=== PATIENT | female | born 1955 | race Caucasian/White ===

== ENCOUNTER 2017-12-29 10:31 | Emergency (ER) | payer SELFPAY ==
[~2017-12-29] VITALS: Ht 154.9 cm; Wt 45.4 kg
[~2017-12-29 10:31] MED LIST: ASPI325; ASPI325 PO; CYCL10 PO; HYDACE5 PO; HYDR1TAB94 PO; IBUP600 PO; NAPR375 PO; Naprosyn500 MG PO; Norco 5-325 Ta1 EACH PO; OXYACE5T PO; PROM25 PO
[2017-12-29] MEDS ORDERED: GUAI600T33 (11:39)
[2017-12-29 12:11] LABS: BASOPHILS ABSOLUTE AUTO 0.04 K/mm3 (0.00-0.23); BASOPHILS PERCENT AUTO 0 % (0-2); EOSINOPHILS PERCENT AUTO 0 % (0-6); Hematocrit 48.3 % (33.0-51.0); Hemoglobin 15.9 g/dL (11.5-16.0); IMMATURE GRAN ABSOLUTE AUTO 0.05 K/mm3 (0.00-0.10); IMMATURE GRAN PERCENT AUTO 0 % (0-1); LYMPHOCYTES ABSOLUTE AUTO 1.14 K/mm3 (0.84-5.20); LYMPHOCYTES PERCENT AUTO 10 % (21-46); MONOCYTES ABSOLUTE AUTO 0.92 K/mm3 (0.16-1.47); MONOCYTES PERCENT AUTO 8 % (4-13); Mean Corpuscular HGB 29.8 pg (26.0-34.0); Mean Corpuscular HGB Conc 32.9 g/dL (31.5-36.5); Mean Corpuscular Volume 90 fL (80-100); Mean Platelet Volume 11.7 fL (9.1-12.4); NEUTROPHILS ABSOLUTE AUTO 9.18 K/mm3 (1.96-9.15); NEUTROPHILS PERCENT AUTO 81 % (41-73); Platelet Count 212 K/mm3 (150-400); RDW Coefficient Variation 13.6 % (11.7-14.2); RDW Standard Deviation 45.1 fL (35.1-46.3); Red Blood Cell Count 5.34 M/mm3 (3.80-5.20); White Blood Cell Count 11.33 K/mm3 (4.00-11.30)
[2017-12-29 12:30] LABS: Anion Gap 8 mmol/L (6-16); Blood Urea Nitrogen 16 mg/dL (8-24); Bun/Creatinine Ratio 31.4 (12.0-20.0); CO2, Blood 26 mmol/L (21-32); Chloride, Blood 104 mmol/L (98-108); Creatinine, Blood 0.51 mg/dL (0.40-1.00); Glomerular Filtration Rate >60 (60-); Glucose, Blood 91 mg/dL (70-99); Potassium, Blood 3.9 mmol/L (3.5-5.5); Sodium, Blood 138 mmol/L (136-145)
[2017-12-29 14:41] LABS: Base Excess Venous -0.8 mmol/L; Bicarbonate Venous 23.5 mmol/L (24.0-30.0); PCO2 Venous 39.6 mmHg (38-42); PO2 Venous 44.7 mmHg (38-42); pH Blood Venous 7.39 (7.34-7.37)
[2017-12-29 15:04] LABS: Troponin I <0.015 ng/mL (0.000-0.040)
[2017-12-29] MEDS ORDERED: HYDR1TAB94 PO (16:17)
[2017-12-29] MEDS ORDERED: Ativan1 MG SL (16:17)
[2017-12-29] MEDS ORDERED: SPACE CHAMBER1 EACH XX (16:20)
[2017-12-29] MEDS ORDERED: ALBU90OI INH (16:20)
== END 2017-12-29 16:25 | disposition home or self-care (01) ==
LOC: ER 10:31
PROVIDERS: Emergency Medicine; Physician Assistant
DX: J44.0 Chronic obstructive pulmonary disease with (acute) lower respiratory infection (principal); J20.9 Acute bronchitis, unspecified; F32.9 Major depressive disorder, single episode, unspecified; F17.200 Nicotine dependence, unspecified, uncomplicated
CPT/HCPCS: 36415; 71046; 80048; 82803; 84443; 84484; 85025; 93005; 93010; 94640; 96374; 99284; J2060

== ENCOUNTER 2018-01-04 09:16 | Emergency (ER) | payer SELFPAY ==
[~2018-01-04] VITALS: Ht 154.9 cm; Wt 49.9 kg
[~2018-01-04 09:16] MED LIST changes: +ALBU90OI INH; +Ativan1 MG SL; +GUAI600T33; +SPACE CHAMBER1 EACH XX
[2018-01-04 10:27] LABS: BASOPHILS ABSOLUTE AUTO 0.06 K/mm3 (0.00-0.23); BASOPHILS PERCENT AUTO 1 % (0-2); EOSINOPHILS ABSOLUTE AUTO 0.03 K/mm3 (0.00-0.68); EOSINOPHILS PERCENT AUTO 0 % (0-6); Hematocrit 49.1 % (33.0-51.0); Hemoglobin 16.4 g/dL (11.5-16.0); IMMATURE GRAN ABSOLUTE AUTO 0.13 K/mm3 (0.00-0.10); IMMATURE GRAN PERCENT AUTO 1 % (0-1); LYMPHOCYTES ABSOLUTE AUTO 2.69 K/mm3 (0.84-5.20); LYMPHOCYTES PERCENT AUTO 26 % (21-46); MONOCYTES ABSOLUTE AUTO 0.68 K/mm3 (0.16-1.47); MONOCYTES PERCENT AUTO 7 % (4-13); Mean Corpuscular HGB 29.5 pg (26.0-34.0); Mean Corpuscular HGB Conc 33.4 g/dL (31.5-36.5); Mean Corpuscular Volume 88 fL (80-100); NEUTROPHILS ABSOLUTE AUTO 6.64 K/mm3 (1.96-9.15); NEUTROPHILS PERCENT AUTO 65 % (41-73); Platelet Count 369 K/mm3 (150-400); RDW Coefficient Variation 12.9 % (11.7-14.2); RDW Standard Deviation 41.8 fL (35.1-46.3); Red Blood Cell Count 5.56 M/mm3 (3.80-5.20); White Blood Cell Count 10.23 K/mm3 (4.00-11.30)
[2018-01-04 10:51] LABS: Free Thyroxine 1.41 ng/dL (0.70-1.60); Magnesium, Blood 2.3 mg/dL (1.6-2.4)
[2018-01-04 10:52] LABS: Anion Gap 11 mmol/L (6-16); Blood Urea Nitrogen 15 mg/dL (8-24); Bun/Creatinine Ratio 31.1 (12.0-20.0); CO2, Blood 26 mmol/L (21-32); Calcium, Blood 9.5 mg/dL (8.5-10.1); Chloride, Blood 102 mmol/L (98-108); Creatinine, Blood 0.48 mg/dL (0.40-1.00); Glomerular Filtration Rate >60 (60-); Glucose, Blood 110 mg/dL (70-99); Potassium, Blood 4.2 mmol/L (3.5-5.5); Sodium, Blood 139 mmol/L (136-145)
[2018-01-04 10:55] LABS: Thyroid Stimulating Hormone 0.898 uIU/mL (0.360-4.800)
[2018-01-04] MEDS ORDERED: LEVO750 PO (12:05)
== END 2018-01-04 13:07 | disposition home or self-care (01) ==
LOC: ER 09:16
PROVIDERS: Emergency Medicine
DX: J44.1 Chronic obstructive pulmonary disease with (acute) exacerbation (principal); F43.21 Adjustment disorder with depressed mood; Z79.899 Other long term (current) drug therapy
CPT/HCPCS: 36415; 71046; 80048; 83735; 84439; 84443; 85025; 96360; 99283; J7030

== ENCOUNTER 2018-02-19 18:03 | Inpatient (IN) | payer SELFPAY ==
[~2018-02-19] VITALS: Ht 154.9 cm; Wt 44.8 kg
[~2018-02-19 18:03] MED LIST changes: +LEVO750 PO
[2018-02-19 18:49] LABS: BASOPHILS PERCENT AUTO 1 % (0-2); EOSINOPHILS ABSOLUTE AUTO 0.25 K/mm3 (0.00-0.68); EOSINOPHILS PERCENT AUTO 1 % (0-6); Hematocrit 39.3 % (33.0-51.0); IMMATURE GRAN ABSOLUTE AUTO 0.15 K/mm3 (0.00-0.10); IMMATURE GRAN PERCENT AUTO 1 % (0-1); LYMPHOCYTES ABSOLUTE AUTO 1.72 K/mm3 (0.84-5.20); LYMPHOCYTES PERCENT AUTO 8 % (21-46); MONOCYTES ABSOLUTE AUTO 1.42 K/mm3 (0.16-1.47); MONOCYTES PERCENT AUTO 7 % (4-13); Mean Corpuscular HGB 29.6 pg (26.0-34.0); Mean Corpuscular HGB Conc 33.1 g/dL (31.5-36.5); Mean Corpuscular Volume 90 fL (80-100); Mean Platelet Volume 10.8 fL (9.1-12.4); NEUTROPHILS ABSOLUTE AUTO 17.75 K/mm3 (1.96-9.15); NEUTROPHILS PERCENT AUTO 83 % (41-73); Platelet Count 339 K/mm3 (150-400); RDW Coefficient Variation 14.1 % (11.7-14.2); RDW Standard Deviation 46.3 fL (35.1-46.3); Red Blood Cell Count 4.39 M/mm3 (3.80-5.20); White Blood Cell Count 21.39 K/mm3 (4.00-11.30)
[2018-02-19 19:07] LABS: Troponin I <0.015 ng/mL (0.000-0.040)
[2018-02-19 19:13] LABS: Alanine Aminotransfer (ALT/SGP 111 U/L (12-78); Albumin, Blood 2.9 g/dL (3.4-5.0); Albumin/Globulin Ratio 0.6 (0.8-1.8); Alk Phos 152 U/L (50-136); Anion Gap 7 mmol/L (6-16); Aspartate Aminotrans (AST/SGOT 139 U/L (12-37); Bilirubin, Total 0.3 mg/dL (0.1-1.0); Blood Urea Nitrogen 10 mg/dL (8-24); CO2, Blood 24 mmol/L (21-32); Calcium, Blood 8.8 mg/dL (8.5-10.1); Chloride, Blood 107 mmol/L (98-108); Creatinine, Blood 0.56 mg/dL (0.40-1.00); Globulin, Blood 4.9 g/dL (2.2-4.0); Glomerular Filtration Rate >60 (60-); Glucose, Blood 119 mg/dL (70-99); Potassium, Blood 4.2 mmol/L (3.5-5.5); Sodium, Blood 138 mmol/L (136-145); Total Protein, Blood 7.8 g/dL (6.4-8.2)
[2018-02-19] MEDS ORDERED: ASPI81CH PO (19:34)
[2018-02-20 06:00] LABS: BASOPHILS ABSOLUTE AUTO 0.03 K/mm3 (0.00-0.23); BASOPHILS PERCENT AUTO 0 % (0-2); EOSINOPHILS PERCENT AUTO 0 % (0-6); Hematocrit 36.5 % (33.0-51.0); Hemoglobin 11.9 g/dL (11.5-16.0); IMMATURE GRAN ABSOLUTE AUTO 0.13 K/mm3 (0.00-0.10); IMMATURE GRAN PERCENT AUTO 1 % (0-1); LYMPHOCYTES ABSOLUTE AUTO 0.63 K/mm3 (0.84-5.20); LYMPHOCYTES PERCENT AUTO 5 % (21-46); MONOCYTES ABSOLUTE AUTO 0.08 K/mm3 (0.16-1.47); MONOCYTES PERCENT AUTO 1 % (4-13); Mean Corpuscular HGB 29.8 pg (26.0-34.0); Mean Corpuscular HGB Conc 32.6 g/dL (31.5-36.5); Mean Corpuscular Volume 92 fL (80-100); Mean Platelet Volume 10.8 fL (9.1-12.4); NEUTROPHILS ABSOLUTE AUTO 12.35 K/mm3 (1.96-9.15); NEUTROPHILS PERCENT AUTO 93 % (41-73); Platelet Count 337 K/mm3 (150-400); RDW Coefficient Variation 14.4 % (11.7-14.2); RDW Standard Deviation 48.7 fL (35.1-46.3); Red Blood Cell Count 3.99 M/mm3 (3.80-5.20); White Blood Cell Count 13.22 K/mm3 (4.00-11.30)
[2018-02-20 06:23] LABS: Alanine Aminotransfer (ALT/SGP 86 U/L (12-78); Albumin, Blood 2.6 g/dL (3.4-5.0); Albumin/Globulin Ratio 0.5 (0.8-1.8); Alk Phos 133 U/L (50-136); Anion Gap 10 mmol/L (6-16); Aspartate Aminotrans (AST/SGOT 50 U/L (12-37); Bilirubin, Total 0.3 mg/dL (0.1-1.0); Blood Urea Nitrogen 9 mg/dL (8-24); Bun/Creatinine Ratio 19.1 (12.0-20.0); CO2, Blood 24 mmol/L (21-32); Calcium, Blood 8.4 mg/dL (8.5-10.1); Chloride, Blood 109 mmol/L (98-108); Creatinine, Blood 0.47 mg/dL (0.40-1.00); Globulin, Blood 4.8 g/dL (2.2-4.0); Glomerular Filtration Rate >60 (60-); Glucose, Blood 149 mg/dL (70-99); Potassium, Blood 3.9 mmol/L (3.5-5.5); Sodium, Blood 143 mmol/L (136-145); Total Protein, Blood 7.4 g/dL (6.4-8.2)
[2018-02-21 17:29] LABS: Influenza A Negative (NEGATIVE); Influenza B Negative (NEGATIVE)
[2018-02-22 16:32] LABS: Hematocrit 39.7 % (33.0-51.0); Hemoglobin 13.1 g/dL (11.5-16.0)
[2018-02-22 21:55] LABS: Hematocrit 38.4 % (33.0-51.0); Hemoglobin 12.4 g/dL (11.5-16.0)
[2018-02-23 04:46] LABS: Hematocrit 42.8 % (33.0-51.0); Hemoglobin 13.8 g/dL (11.5-16.0)
[2018-02-23 10:17] LABS: Hematocrit 42.4 % (33.0-51.0)
== END 2018-02-23 13:40 | disposition home or self-care (01) | DRG 189 ==
LOC: ER 18:03 → SURS 22:01
PROVIDERS: Emergency Medicine; Internal Medicine
DX: J96.01 Acute respiratory failure with hypoxia (principal); J44.1 Chronic obstructive pulmonary disease with (acute) exacerbation; K21.9 Gastro-esophageal reflux disease without esophagitis; J40 Bronchitis, not specified as acute or chronic; S30.1XXA Contusion of abdominal wall, initial encounter; I73.9 Peripheral vascular disease, unspecified; Z79.82 Long term (current) use of aspirin; Z79.899 Other long term (current) drug therapy; Z87.891 Personal history of nicotine dependence
CPT/HCPCS: 36415; 71046; 74177; 80053; 83605; 83690; 83880; 84484; 85014; 85018; 85025; 87070; 87077; 87186; 87205; 87804; 93005; 93010; 94010; 94640; 94644; 94664; 94667; 94668; 94760; 96365; 96366; 96375; 98960; 99285; 99407; J1650; J1956; J2920; J2930; J3010; J7030; Q9967

== ENCOUNTER 2018-12-30 12:23 | Emergency (ER) | payer OTHER ==
[~2018-12-30] VITALS: Ht 154.9 cm; Wt 41.7 kg
[~2018-12-30 12:23] MED LIST changes: +ASPI81CH PO
[2018-12-30] MEDS ORDERED: Ventolin/Prove6.7 GM (13:27)
[2018-12-30] MEDS ORDERED: CLON.5 PO (13:27)
[2018-12-30] MEDS ORDERED: BUSP10 PO (13:27)
[2018-12-30] MEDS ORDERED: IBUP600 PO (13:46)
[2018-12-30] MEDS ORDERED: Percocet 5-3251 EACH PO (13:46)
== END 2018-12-30 13:57 | disposition home or self-care (01) ==
LOC: ER 12:23
DX: M75.32 Calcific tendinitis of left shoulder (principal); Z79.899 Other long term (current) drug therapy; J44.9 Chronic obstructive pulmonary disease, unspecified; F17.200 Nicotine dependence, unspecified, uncomplicated
CPT/HCPCS: 73030; 99283-25

== ENCOUNTER 2019-11-17 11:32 | Emergency (ER) | payer OTHER ==
[~2019-11-17] VITALS: Ht 154.9 cm; Wt 38.6 kg
[~2019-11-17 11:32] MED LIST changes: +BUSP10 PO; +CLON.5 PO; +Percocet 5-3251 EACH PO; +Ventolin/Prove6.7 GM
[2019-11-17 12:27] LABS: BASOPHILS ABSOLUTE AUTO 0.04 K/mm3 (0.00-0.23); BASOPHILS PERCENT AUTO 0 % (0-2); EOSINOPHILS ABSOLUTE AUTO 0.05 K/mm3 (0.00-0.68); EOSINOPHILS PERCENT AUTO 0 % (0-6); Hematocrit 46.4 % (33.0-51.0); Hemoglobin 15.5 g/dL (11.5-16.0); IMMATURE GRAN ABSOLUTE AUTO 0.09 K/mm3 (0.00-0.10); IMMATURE GRAN PERCENT AUTO 1 % (0-1); LYMPHOCYTES ABSOLUTE AUTO 2.26 K/mm3 (0.84-5.20); LYMPHOCYTES PERCENT AUTO 14 % (21-46); MONOCYTES PERCENT AUTO 9 % (4-13); Mean Corpuscular HGB 30.8 pg (26.0-34.0); Mean Corpuscular HGB Conc 33.4 g/dL (31.5-36.5); Mean Corpuscular Volume 92 fL (80-100); Mean Platelet Volume 11.5 fL (9.1-12.4); NEUTROPHILS ABSOLUTE AUTO 12.52 K/mm3 (1.96-9.15); NEUTROPHILS PERCENT AUTO 76 % (41-73); Platelet Count 236 K/mm3 (150-400); RDW Coefficient Variation 13.2 % (11.7-14.2); RDW Standard Deviation 44.8 fL (35.1-46.3); Red Blood Cell Count 5.03 M/mm3 (3.80-5.20); White Blood Cell Count 16.46 K/mm3 (4.00-11.30)
[2019-11-17 12:43] LABS: Anion Gap 6 mmol/L (6-16); Blood Urea Nitrogen 21 mg/dL (8-24); Bun/Creatinine Ratio 35.5 (12.0-20.0); CO2, Blood 25 mmol/L (21-32); Calcium, Blood 9.2 mg/dL (8.5-10.1); Chloride, Blood 109 mmol/L (98-108); Creatinine, Blood 0.59 mg/dL (0.40-1.00); Glomerular Filtration Rate >60 (60-); Glucose, Blood 115 mg/dL (70-99); Potassium, Blood 4.1 mmol/L (3.5-5.5); Sodium, Blood 140 mmol/L (136-145)
[2019-11-17 12:49] LABS: Influenza A Negative (NEGATIVE); Influenza B Negative (NEGATIVE)
[2019-11-17 14:44] LABS: Source, Urine Clean Catch
[2019-11-17 14:57] LABS: Blood, Urine 1+ (Neg); Glucose Qualitative, Urine Neg (Neg); Ketones, Urine 2+ (Neg); Leukocyte Esterase, Urine 1+ (Neg); Nitrite, Urine Neg (Neg); Protein, Urine 2+ (Neg); Urobilinogen, Urine NORM (Normal)
[2019-11-17 15:10] LABS: Bilirubin, Urine 1+ (Neg); Color, Urine Yellow (P-Yellow)
[2019-11-17 15:11] LABS: Appearance, Urine Hazy (Clear)
[2019-11-17 15:14] LABS: Squamous Epithelial Cells Mod /hpf (Few)
[2019-11-17 15:15] LABS: Bacteria Many /hpf; Mucus Light (0-Heavy)
[2019-11-17] MEDS ORDERED: Keflex500 MG PO (15:27)
[2019-11-17] MEDS ORDERED: Norco 5-325 Ta1 EACH PO (15:27)
[2019-11-17] MEDS ORDERED: ONDA4ODT MM (15:27)
[2019-12-11] MEDS ORDERED: BUSP10 PO (12:50)
[2019-12-11] MEDS ORDERED: SERT25 PO (12:51)
[2019-12-11] MEDS ORDERED: ALBU90OI INH (12:51)
[2019-12-11] MEDS ORDERED: ASPI325 PO (12:52)
== END 2019-11-17 16:30 | disposition home or self-care (01) ==
LOC: ER 11:32
PROVIDERS: Physician Assistant
DX: J11.1 Influenza due to unidentified influenza virus with other respiratory manifestations (principal); N39.0 Urinary tract infection, site not specified; J44.9 Chronic obstructive pulmonary disease, unspecified; F17.210 Nicotine dependence, cigarettes, uncomplicated; Z79.899 Other long term (current) drug therapy; Z79.51 Long term (current) use of inhaled steroids
CPT/HCPCS: 71046; 80048; 81001; 85025; 87086; 87804; 96361; 96365; 96375; 99283-25; J0696; J2405; J7030

== ENCOUNTER 2019-12-12 10:06 | Day surgery (SDC) | payer OTHER ==
[~2019-12-12] VITALS: Ht 154.9 cm; Wt 37.9 kg
[~2019-12-12 10:06] MED LIST changes: +Keflex500 MG PO; +ONDA4ODT MM; +SERT25 PO
--- NOTE | 2019-12-12 11:25 | NUR ---
History, Chart, Medications and Allergies reviewed before start of procedure. Patient confirms NPO status and agrees with scheduled surgery. Lungs clear T/O to Auscultation. Patient States Post-Procedure ride home has been arranged. Patient states colon prep results clear. Pre-Op teaching done. Pt verbalizes understanding.
--- NOTE | 2019-12-12 11:53 | NUR ---
PATIENT INTERESTED IN ADVANCED DIRECTIVE BOOKLET, EDUCATION PROVIDED AND BOOKLET GIVEN TO PATIENT TO REVIEW.
--- NOTE | 2019-12-12 12:29 | NUR ---
12/12/19 1229 CAROLE SCHULTZ History, Chart, Medications and Allergies reviewed before start of procedure.3-LEAD EKG REVIEWED WITH PHYSICIAN PRIOR TO START OF PROCEDURE.O2 VIA N/C INTACT THROUGHOUT SEDATION/PROCEDURE. MONITOR INTACT WITH CONTINUOUS PULSE OXIMETRY AND INTERMITTENT BP.PATIENT DETERMINED TO BE ASA APPROPRIATE FOR PROPOFOL SEDATION PRIOR TO START OF PROCEDURE BY .
== END 2019-12-12 13:26 | disposition home or self-care (01) ==
LOC: ORSCMMR 10:06 → ORD 11:00 → ORSCMMR 13:26
PROVIDERS: Internal Medicine Gastroenterology
PROC: 0DBN8ZX Excision of Sigmoid Colon, Via Natural or Artificial Opening Endoscopic, Diagnostic (ICD-10-PCS; principal; 2019-12-12 11:00)
DX: Z12.11 Encounter for screening for malignant neoplasm of colon (principal); K63.5 Polyp of colon; J44.9 Chronic obstructive pulmonary disease, unspecified; I73.9 Peripheral vascular disease, unspecified; F41.9 Anxiety disorder, unspecified; F17.210 Nicotine dependence, cigarettes, uncomplicated; Z79.82 Long term (current) use of aspirin; Z79.899 Other long term (current) drug therapy
CPT/HCPCS: 88305; J2704; J7120

== ENCOUNTER → 2020-01-08 | Outpatient (CLI) | payer OTHER ==
[2020-01-09 15:10] LABS: HPV 16 Negative (Negative); HPV 18 Negative (Negative); HPV OTHER HR TYPES Negative (Negative)
== END ==
LOC: LAB SHORT 12:08 → LAB 12:08
PROVIDERS: Registered Nurse Community Health
DX: Z12.4 Encounter for screening for malignant neoplasm of cervix (principal)
CPT/HCPCS: 87624; G0123

== ENCOUNTER 2020-02-20 12:29 | Emergency (ER) | payer OTHER ==
[~2020-02-20] VITALS: Ht 154.9 cm; Wt 39.5 kg
[2020-02-20 12:58] LABS: BASOPHILS ABSOLUTE AUTO 0.08 K/mm3 (0.00-0.23); BASOPHILS PERCENT AUTO 1 % (0-2); EOSINOPHILS ABSOLUTE AUTO 0.01 K/mm3 (0.00-0.68); EOSINOPHILS PERCENT AUTO 0 % (0-6); Hematocrit 49.9 % (33.0-51.0); Hemoglobin 16.5 g/dL (11.5-16.0); IMMATURE GRAN PERCENT AUTO 1 % (0-1); LYMPHOCYTES PERCENT AUTO 6 % (21-46); MONOCYTES ABSOLUTE AUTO 0.76 K/mm3 (0.16-1.47); MONOCYTES PERCENT AUTO 5 % (4-13); Mean Corpuscular HGB 30.5 pg (26.0-34.0); Mean Corpuscular HGB Conc 33.1 g/dL (31.5-36.5); Mean Corpuscular Volume 92 fL (80-100); Mean Platelet Volume 10.6 fL (9.1-12.4); NEUTROPHILS ABSOLUTE AUTO 13.71 K/mm3 (1.96-9.15); NEUTROPHILS PERCENT AUTO 88 % (41-73); Platelet Count 308 K/mm3 (150-400); RDW Coefficient Variation 13.6 % (11.7-14.2); RDW Standard Deviation 46.3 fL (35.1-46.3); Red Blood Cell Count 5.41 M/mm3 (3.80-5.20); White Blood Cell Count 15.66 K/mm3 (4.00-11.30)
[2020-02-20 13:18] LABS: Alanine Aminotransfer (ALT/SGP 20 U/L (12-78); Albumin, Blood 3.8 g/dL (3.4-5.0); Albumin/Globulin Ratio 0.9 (0.8-1.8); Alk Phos 86 U/L (50-136); Anion Gap 6 mmol/L (6-16); Aspartate Aminotrans (AST/SGOT 24 U/L (12-37); Bilirubin, Total 0.2 mg/dL (0.1-1.0); Blood Urea Nitrogen 14 mg/dL (8-24); Bun/Creatinine Ratio 20.6 (12.0-20.0); CO2, Blood 26 mmol/L (21-32); Calcium, Blood 9.4 mg/dL (8.5-10.1); Chloride, Blood 107 mmol/L (98-108); Creatinine, Blood 0.68 mg/dL (0.40-1.00); Globulin, Blood 4.2 g/dL (2.2-4.0); Glomerular Filtration Rate >60 (60-); Glucose, Blood 124 mg/dL (70-99); Potassium, Blood 4.4 mmol/L (3.5-5.5); Sodium, Blood 139 mmol/L (136-145); Troponin I 0.029 ng/mL (0.000-0.040)
[2020-02-20 13:27] LABS: Source, Urine Clean Catch
[2020-02-20 13:35] LABS: Magnesium, Blood 2.3 mg/dL (1.6-2.4); Phosphorus, Blood 2.4 mg/dL (2.5-4.9)
[2020-02-20 13:46] LABS: Bilirubin, Urine Neg (Neg); Blood, Urine 2+ (Neg); Glucose Qualitative, Urine Neg (Neg); Ketones, Urine 2+ (Neg); Leukocyte Esterase, Urine Neg (Neg); Nitrite, Urine Neg (Neg); Protein, Urine 3+ (Neg); Urobilinogen, Urine NORM (Normal)
[2020-02-20 14:07] LABS: Appearance, Urine Hazy (Clear); Color, Urine Yellow (P-Yellow)
[2020-02-20 14:08] LABS: Bacteria Few /hpf; Mucus Light (0-Heavy); Squamous Epithelial Cells Rare /hpf (Few)
[2020-02-20 14:28] LABS: U Amphetamine Screen Not Detected; U Barbituate Screen Not Detected; U Benzodiazapine Screen Not Detected; U Buprenorphine Screen Not Detected; U Cannabinoids Screen DETECTED; U Cocaine Screen Not Detected; U Methadone Screen Not Detected; U Methamphetamine Screen Not Detected; U Opiates Screen Not Detected; U Oxycodone Screen Not Detected; U Phencyclidine Screen Not Detected; U Propoxyphene Screen Not Detected
[2020-02-20] MEDS ORDERED: Esgic Tablet1 EACH PO (15:29)
== END 2020-02-20 16:49 | disposition home or self-care (01) ==
LOC: ER 12:29
PROVIDERS: Emergency Medicine
DX: J44.1 Chronic obstructive pulmonary disease with (acute) exacerbation (principal); G44.209 Tension-type headache, unspecified, not intractable; F32.9 Major depressive disorder, single episode, unspecified; F41.9 Anxiety disorder, unspecified; I73.9 Peripheral vascular disease, unspecified; Z79.82 Long term (current) use of aspirin; Z79.899 Other long term (current) drug therapy; F17.210 Nicotine dependence, cigarettes, uncomplicated
CPT/HCPCS: 36415; 70450; 71045; 80053; 81001; 83690; 83735; 84100; 84484; 85025; 93005; 93010; 96361; 96374; 96375; 99285-25; J1885; J2405; J3010; J7030

== ENCOUNTER 2020-12-01 09:38 | Inpatient (IN) | payer OTHER ==
[~2020-12-01] VITALS: Ht 152.4 cm; Wt 38.4 kg
[~2020-12-01 09:38] MED LIST changes: +Aspirin EC81 MG PO; +Esgic Tablet1 EACH PO
[2020-12-01 10:10] LABS: Calcium, Ionized (POC) 1.22 mmol/L (1.10-1.46); Chloride (POC) 105 mmol/L (98-108); Creatinine (POC) 0.7 mg/dL (0.6-1.0); Glucose (ISTAT POC) 180 mg/dL (70-99); Hemoglobin (POC) 17.7 g/dL (12.0-16.0); Potassium (POC) 3.6 mmol/L (3.5-5.5); Sodium (POC) 142 mmol/L (135-148); Total CO2 (POC) 21 mmol/L (21-32)
[2020-12-01 10:17] LABS: BASOPHILS ABSOLUTE AUTO 0.08 K/mm3 (0.00-0.23); BASOPHILS PERCENT AUTO 0 % (0-2); EOSINOPHILS ABSOLUTE AUTO 0.01 K/mm3 (0.00-0.68); EOSINOPHILS PERCENT AUTO 0 % (0-6); Hematocrit 54.4 % (33.0-51.0); Hemoglobin 16.7 g/dL (11.5-16.0); IMMATURE GRAN ABSOLUTE AUTO 0.11 K/mm3 (0.00-0.10); IMMATURE GRAN PERCENT AUTO 1 % (0-1); LYMPHOCYTES ABSOLUTE AUTO 2.26 K/mm3 (0.84-5.20); LYMPHOCYTES PERCENT AUTO 11 % (21-46); MONOCYTES ABSOLUTE AUTO 1.29 K/mm3 (0.16-1.47); MONOCYTES PERCENT AUTO 6 % (4-13); Mean Corpuscular HGB Conc 30.7 g/dL (31.5-36.5); Mean Corpuscular Volume 98 fL (80-100); Mean Platelet Volume 11.4 fL (9.1-12.4); NEUTROPHILS ABSOLUTE AUTO 16.91 K/mm3 (1.96-9.15); NEUTROPHILS PERCENT AUTO 82 % (41-73); Platelet Count 293 K/mm3 (150-400); RDW Coefficient Variation 13.2 % (11.7-14.2); Red Blood Cell Count 5.56 M/mm3 (3.80-5.20); White Blood Cell Count 20.66 K/mm3 (4.00-11.30)
[2020-12-01] MEDS ORDERED: ATOR20 PO (10:28)
[2020-12-01 10:47] LABS: Alanine Aminotransfer (ALT/SGP 37 U/L (12-78); Albumin, Blood 3.8 g/dL (3.4-5.0); Alk Phos 89 U/L (50-136); Anion Gap 13 mmol/L (6-16); Aspartate Aminotrans (AST/SGOT 30 U/L (12-37); Bilirubin, Total 0.3 mg/dL (0.1-1.0); Blood Urea Nitrogen 24 mg/dL (8-24); Bun/Creatinine Ratio 35.2 (12.0-20.0); CO2, Blood 23 mmol/L (21-32); Calcium, Blood 9.3 mg/dL (8.5-10.1); Chloride, Blood 109 mmol/L (98-108); Creatinine, Blood 0.68 mg/dL (0.40-1.00); Glomerular Filtration Rate >60 (60-); Glucose, Blood 131 mg/dL (70-99); Sodium, Blood 145 mmol/L (136-145); Total Protein, Blood 7.8 g/dL (6.4-8.2); Troponin I 0.128 ng/mL (0.000-0.040)
[2020-12-01 11:10] LABS: Source, Urine Clean Catch
[2020-12-01 11:13] LABS: Appearance, Urine Cloudy (Clear); Bilirubin, Urine Neg (Neg); Blood, Urine 2+ (Neg); Color, Urine Yellow (P-Yellow); Glucose Qualitative, Urine Neg (Neg); Ketones, Urine Neg (Neg); Leukocyte Esterase, Urine Neg (Neg); Nitrite, Urine Neg (Neg); Protein, Urine 2+ (Neg); Urobilinogen, Urine NORM (Normal)
[2020-12-01 11:24] LABS: Squamous Epithelial Cells Few /hpf (Few); White Blood Cells, Urine 0-2 /hpf (0-5)
[2020-12-01 11:25] LABS: Amorphous Heavy (0-Heavy); Bacteria Few /hpf; Mucus Light (0-Heavy)
[2020-12-01 11:34] LABS: U Amphetamine Screen Not Detected; U Barbituate Screen Not Detected; U Benzodiazapine Screen Not Detected; U Buprenorphine Screen Not Detected; U Cannabinoids Screen DETECTED; U Cocaine Screen Not Detected; U Methadone Screen Not Detected; U Methamphetamine Screen Not Detected; U Opiates Screen Not Detected; U Oxycodone Screen Not Detected; U Phencyclidine Screen Not Detected; U Propoxyphene Screen Not Detected
[2020-12-01 12:30] LABS: Creatine Kinase MB 6.6 ng/mL (0.0-3.6); Creatine Kinase MB Index 3.4 (0.0-4.0)
--- NOTE | 2020-12-01 14:19 | NUR ---
telephone report received from JUANITA Figueroa in ED. Anticipate pt arrival to PCU 11 after echocardiogram in progress is finished.
--- NOTE | 2020-12-01 14:25 | NUR ---
Echocardiogram completed.
--- NOTE | 2020-12-01 17:44 | NUR ---
The pt was received from the ED on a stretcher and transfered by sliding to her bed in PCU 11 this afternoon. She awakened briefly when spoken to and for care, and also to get up to the bedside commode to attempt to void after the barlow was dc'd. She otherwise has been sleeping unless stimulated.
--- NOTE | 2020-12-01 17:53 | NUR ---
Daughter in law Chika was here with the patient throughout the admission and until visiting hours were over at this time. Concern voiced about the pt's anxiety and that she can become agitated over being in the hospital. Bed alarm is on due to pt's ongoing lethargy, although she does appear to be more alert and talkative than when she got here around 1500.
[2020-12-02 04:37] LABS: BASOPHILS ABSOLUTE AUTO 0.07 K/mm3 (0.00-0.23); BASOPHILS PERCENT AUTO 1 % (0-2); EOSINOPHILS ABSOLUTE AUTO 0.05 K/mm3 (0.00-0.68); EOSINOPHILS PERCENT AUTO 0 % (0-6); Hemoglobin 13.5 g/dL (11.5-16.0); IMMATURE GRAN ABSOLUTE AUTO 0.05 K/mm3 (0.00-0.10); IMMATURE GRAN PERCENT AUTO 0 % (0-1); LYMPHOCYTES ABSOLUTE AUTO 2.49 K/mm3 (0.84-5.20); LYMPHOCYTES PERCENT AUTO 19 % (21-46); MONOCYTES ABSOLUTE AUTO 1.16 K/mm3 (0.16-1.47); MONOCYTES PERCENT AUTO 9 % (4-13); Mean Corpuscular HGB 30.5 pg (26.0-34.0); Mean Corpuscular HGB Conc 32.9 g/dL (31.5-36.5); Mean Platelet Volume 11.5 fL (9.1-12.4); NEUTROPHILS ABSOLUTE AUTO 9.02 K/mm3 (1.96-9.15); NEUTROPHILS PERCENT AUTO 70 % (41-73); Platelet Count 219 K/mm3 (150-400); RDW Coefficient Variation 13.2 % (11.7-14.2); RDW Standard Deviation 45.3 fL (35.1-46.3); Red Blood Cell Count 4.42 M/mm3 (3.80-5.20); White Blood Cell Count 12.84 K/mm3 (4.00-11.30)
[2020-12-02 04:38] LABS: Mean Corpuscular Volume 93 fL (80-100)
--- NOTE | 2020-12-02 04:50 | NUR ---
SUMMARY PATIENT IS ALERT AND ORIENTED, CAN BE CONFUSED AND ANXIOUS UPON WAKING. 1 PERSON MINIMAL ASSIST TO BEDSIDE COMMODE. PATIENT CALLS APPROPRIATELY, BED ALARM ON DUE TO CONFUSION AT TIMES. PATIENT SLEPT MOST THE NIGHT. BILATERAL COMPRESSION WORN. 02 SATS >90% ON RA. VSS, NO ACUTE CHANGES. CALL LIGHT IN REACH. BED IN LOWEST POSITION.
[2020-12-02 05:04] LABS: Alanine Aminotransfer (ALT/SGP 24 U/L (12-78); Alk Phos 66 U/L (50-136); Anion Gap 6 mmol/L (6-16); Aspartate Aminotrans (AST/SGOT 27 U/L (12-37); Bilirubin, Total 0.6 mg/dL (0.1-1.0); Blood Urea Nitrogen 19 mg/dL (8-24); Bun/Creatinine Ratio 32.1 (12.0-20.0); CO2, Blood 26 mmol/L (21-32); Calcium, Blood 8.4 mg/dL (8.5-10.1); Chloride, Blood 110 mmol/L (98-108); Creatinine, Blood 0.59 mg/dL (0.40-1.00); Globulin, Blood 3.1 g/dL (2.2-4.0); Glomerular Filtration Rate >60 (60-); Glucose, Blood 88 mg/dL (70-99); Potassium, Blood 3.3 mmol/L (3.5-5.5); Sodium, Blood 142 mmol/L (136-145); Total Protein, Blood 6.1 g/dL (6.4-8.2)
--- NOTE | 2020-12-02 08:17 | NUR ---
Provider Dr. Chaudhry was here this morning after the EEG had been completed. The pt is easily awakened this morning, but appears sleepy. She has no complaints, and states that she isn't hungry. States doesn't usually eat breakfast, only drinks coffee.
--- NOTE | 2020-12-02 10:51 | NUR ---
ASSUMED CARE FROM NOC RN, MORNING UPDATE PT WAS HAVING AN EEG DONE DURING REPORT. AFTERWARDS PT WAS SLEEPING IN BED. PT REPORTS FEELING VERY TIRED. PT WAS ABLE TO WAKE UP TO TAKE MORNING MEDICATIONS AND WAS SBA TO THE BSC. PT WAS INFORMED BY DR. BENAVIDES THIS MORNING THAT SHE WOULD NOT BE ABLE TO DRIVE FOR THE [facility]UT[facility] PER [place] LAW. PT BECAME TEARFUL WITH THIS INFORMATION. PT WAS STATUS CHANGED TO MED STATUS NO TELE.
--- NOTE | 2020-12-02 12:26 | NUR ---
TRANSFER TO MEDICAL FLOOR PT TRANSFERRED TO MEDICAL FLOOR AT APPROXIMATELY 1224 VIA WHEELCHAIR ACCOMPANIED BY RNGILBERTO. PT VS ARE STABLE, PT WAS ABLE TO SBA TRANSFER TO WHEELCHAIR. PT ON RA, SALINE LOCKED. LOVENOX INJECTION GIVEN PRIOR TO TRANSFER. PT REFUSED LUNCH AND DID NOT WANT IT TO TRANSFER WITH HER. REPORT WAS GIVEN TO KENIA GRANT
--- NOTE | 2020-12-02 18:44 | NUR ---
SHIFT SUMMARY- PT TRANSFERED TO MEDICAL FLOOR FROM PCU EARLIER TODAY. DR LEAL CALLED AND ASKED ABOUT THE EEG RESULTS WHICH ARE NOT IN YET. CALLED LINEN SORTER AND INQUIRED ABOUT THE RESULTS. PER LINEN SORTER DR HUYNH HAS READ IT SO THE WRITTEN READING OF IT SHOULD BE AVAILABLE LATE TONIGHT OR TOMORROW MORNING. DR LEAL ALSO ASKED ABOUT DMV DOCUMENTS TO SUSPEND PT ABILITY TO DRIVE UNTIL HER SEIZURE MEDICATIONS ARE MORE REGULATED. PT IS AWARE SHE IS NOT ALLOWED TO DRIVE. DOCUMENTATION WAS LOCATED AND PLACED IN THE PT HARD CHART TO BE FILLED OUT TOMORROW. CALLED DR LEAL, SE IS AWARE. DISCHARGE PLANS ARE UNCERTAIN AT THIS TIME THE PT HAS BEEN LIVING ALONE.
--- NOTE | 2020-12-02 19:15 | NUR ---
ASSUMED CARE RECEIVED REPORT FROM JUANITA AQUINO. PT SITTING UP IN BED, NO S/S ACUTE DISTRESS NOTED. DENIES PAIN OR NEEDS. RESPS E/U. CALL LIGHT, POSSESSIONS IN REACH, BED IN LOW POSITION WITH ALARMS ON. WCTM.
--- NOTE | 2020-12-03 04:30 | NUR ---
COTTON FACTOR ROUNDING AFTER TOILETING AND GETTING VS. ASKED PATIENT IF SHE WOULD LIKE ANYTHING FRESH TO DRINK. STATED "NO, I DONT REALLY DRINK MUCH, MY KIDS ARE ALWAYS AFTER ME FOR THAT".
[2020-12-03 05:13] LABS: BASOPHILS ABSOLUTE AUTO 0.08 K/mm3 (0.00-0.23); BASOPHILS PERCENT AUTO 1 % (0-2); EOSINOPHILS ABSOLUTE AUTO 0.16 K/mm3 (0.00-0.68); EOSINOPHILS PERCENT AUTO 2 % (0-6); Hematocrit 44.2 % (33.0-51.0); Hemoglobin 14.7 g/dL (11.5-16.0); IMMATURE GRAN ABSOLUTE AUTO 0.03 K/mm3 (0.00-0.10); IMMATURE GRAN PERCENT AUTO 0 % (0-1); LYMPHOCYTES PERCENT AUTO 27 % (21-46); MONOCYTES ABSOLUTE AUTO 0.88 K/mm3 (0.16-1.47); MONOCYTES PERCENT AUTO 10 % (4-13); Mean Corpuscular HGB 30.8 pg (26.0-34.0); Mean Corpuscular HGB Conc 33.3 g/dL (31.5-36.5); Mean Corpuscular Volume 93 fL (80-100); Mean Platelet Volume 11.7 fL (9.1-12.4); NEUTROPHILS PERCENT AUTO 60 % (41-73); Platelet Count 221 K/mm3 (150-400); RDW Coefficient Variation 13.1 % (11.7-14.2); RDW Standard Deviation 44.6 fL (35.1-46.3); Red Blood Cell Count 4.78 M/mm3 (3.80-5.20); White Blood Cell Count 8.65 K/mm3 (4.00-11.30)
--- NOTE | 2020-12-03 05:30 | NUR ---
SHIFT SUMMARY PT ASLEEP, NO S/S ACUTE DISTRESS NOTED, RESPS E/U. HAS BEEN VERY DROWSY T/O NIGHT, REASSURED PT THAT THIS IS NORMAL ACTIVITY POST SEIZURE. NO SEIZURE ACTIVITY NOTED T/O NIGHT. VS REVIEWED, WNL. APPEARED TO TOLERATE IV KEPPRA WELL. SPECIAL EDUCATION CASE MANAGER REPORTED TO THIS RN THAT PT HAS LOW ORAL INTAKE OF FLUIDS. WILL CONTINUE TO ENCOURAGE FLUIDS THAT PT PREFERS. PT DENIES NEEDS AT THIS TIME. CALL LIGHT, POSSESSIONS IN REACH, BED IN LOW POSITION WITH SEIZURE PADS AND ALARMS ON. WILL CONTINUE TO MONITOR AND PROVIDE CARE UNTIL REPORT GIVEN TO DAY RN.
[2020-12-03 06:00] LABS: Anion Gap 6 mmol/L (6-16); Blood Urea Nitrogen 16 mg/dL (8-24); Bun/Creatinine Ratio 30.9 (12.0-20.0); CO2, Blood 26 mmol/L (21-32); Calcium, Blood 8.6 mg/dL (8.5-10.1); Chloride, Blood 110 mmol/L (98-108); Creatinine, Blood 0.52 mg/dL (0.40-1.00); Glomerular Filtration Rate >60 (60-); Glucose, Blood 76 mg/dL (70-99); Potassium, Blood 3.7 mmol/L (3.5-5.5); Sodium, Blood 142 mmol/L (136-145)
[2020-12-03] MEDS ORDERED: LEVE500 PO (14:48)
--- NOTE | 2020-12-03 16:45 | NUR ---
DISCHARGE NOTE- PT WAS GIVEN VERBAL AND WRITTEN DISCHARGE INSTRUCTIONS AND ACKNOWLEDGED UNDERSTANDING OF THEM, PT [id number] PRESENT FOR THE DISCHARGE TEACHING. PT IV DC'D PRIOR TO DISCHARGE. AIR POLLUTION ENGINEER YASMINE SENT REFERAL PAPERWORK, REQUESTED BY DR HUYNH'S OFFICE STAFF, TO DR HUYNH'S OFFICE FOR THE PT TO FOLLOW UP WITH HIM. PT ALERT, ORIENTED AND INDEPENDENT IN THE ROOM. SHE DRESSED HERSELF INDEPENDENTLY AND WAS ESCORTED OUT VIA WC BY THE ENGINEERING PROGRAM MANAGER. NO FURTHER QUESTIONS AT THE TIME OF DISCHARGE.
[2021-04-26] MEDS ORDERED: LEVETIRACETAM PO (21:02)
[2021-04-28] MEDS ORDERED: NICO21TP TOP (08:47)
[2021-04-28] MEDS ORDERED: Prinivil10 MG PO (09:52)
== END 2020-12-03 15:30 | disposition home or self-care (01) | DRG 100 ==
LOC: ER 09:38 → PCU 12:29 → MEDS 12-02 12:25
PROVIDERS: Emergency Medicine; Nurse Practitioner Acute Care; Student in an Organized Health Care Education/Training Program; ADMIT Internal Medicine
DX: G40.409 Other generalized epilepsy and epileptic syndromes, not intractable, without status epilepticus (principal); I21.A1 Myocardial infarction type 2; R64 Cachexia; Z68.1 Body mass index [BMI] 19.9 or less, adult; R65.10 Systemic inflammatory response syndrome (SIRS) of non-infectious origin without acute organ dysfunction; Z79.82 Long term (current) use of aspirin; J44.9 Chronic obstructive pulmonary disease, unspecified; F17.210 Nicotine dependence, cigarettes, uncomplicated; I73.9 Peripheral vascular disease, unspecified; F41.8 Other specified anxiety disorders; E78.5 Hyperlipidemia, unspecified; R77.8 Other specified abnormalities of plasma proteins
CPT/HCPCS: 36415; 36416; 51702; 70450; 71045; 80047; 80048; 80053; 81001; 82550; 82553; 83605; 83735; 84443; 84484; 85014; 85025; 85651; 86140; 87040; 93005; 93010; 93306; 94760; 95819; 96374-59; 97165; 99285-25; A9270; J1650; J1953; J2060; J7120

== ENCOUNTER 2021-04-25 18:10 | Emergency (ER) | payer OTHER ==
[~2021-04-25] VITALS: Ht 154.9 cm; Wt 38.6 kg
[~2021-04-25 18:10] MED LIST changes: +ATOR20 PO; +LEVE500 PO
[2021-04-25 18:50] LABS: BASOPHILS ABSOLUTE AUTO 0.06 K/mm3 (0.00-0.23); BASOPHILS PERCENT AUTO 0 % (0-2); EOSINOPHILS ABSOLUTE AUTO 0.05 K/mm3 (0.00-0.68); EOSINOPHILS PERCENT AUTO 0 % (0-6); Hematocrit 44.6 % (33.0-51.0); IMMATURE GRAN ABSOLUTE AUTO 0.08 K/mm3 (0.00-0.10); IMMATURE GRAN PERCENT AUTO 1 % (0-1); LYMPHOCYTES ABSOLUTE AUTO 0.91 K/mm3 (0.84-5.20); LYMPHOCYTES PERCENT AUTO 6 % (21-46); MONOCYTES ABSOLUTE AUTO 0.72 K/mm3 (0.16-1.47); MONOCYTES PERCENT AUTO 5 % (4-13); Mean Corpuscular HGB 31.1 pg (26.0-34.0); Mean Corpuscular HGB Conc 33.6 g/dL (31.5-36.5); Mean Corpuscular Volume 92 fL (80-100); Mean Platelet Volume 11.5 fL (9.1-12.4); NEUTROPHILS ABSOLUTE AUTO 12.63 K/mm3 (1.96-9.15); NEUTROPHILS PERCENT AUTO 87 % (41-73); Platelet Count 226 K/mm3 (150-400); RDW Coefficient Variation 12.9 % (11.7-14.2); RDW Standard Deviation 43.8 fL (35.1-46.3); Red Blood Cell Count 4.83 M/mm3 (3.80-5.20); White Blood Cell Count 14.45 K/mm3 (4.00-11.30)
[2021-04-25 19:14] LABS: Alanine Aminotransfer (ALT/SGP 39 U/L (12-78); Albumin, Blood 3.4 g/dL (3.4-5.0); Albumin/Globulin Ratio 0.9 (0.8-1.8); Alk Phos 86 U/L (50-136); Anion Gap 6 mmol/L (6-16); Aspartate Aminotrans (AST/SGOT 23 U/L (12-37); Bilirubin, Total 0.6 mg/dL (0.1-1.0); Blood Urea Nitrogen 11 mg/dL (8-24); CO2, Blood 27 mmol/L (21-32); Chloride, Blood 107 mmol/L (98-108); Creatinine, Blood 0.61 mg/dL (0.40-1.00); Globulin, Blood 3.8 g/dL (2.2-4.0); Glomerular Filtration Rate >60 (60-); Glucose, Blood 161 mg/dL (70-99); Sodium, Blood 140 mmol/L (136-145); Total Protein, Blood 7.2 g/dL (6.4-8.2); Troponin I <0.015 ng/mL (0.000-0.040)
[2021-04-26] MEDS ORDERED: LEVETIRACETAM PO ×2 (21:02)
== END 2021-04-25 20:29 | disposition left against medical advice (07) ==
LOC: ER 18:10
PROVIDERS: Physician Assistant
DX: R06.02 Shortness of breath (principal); Z53.21 Procedure and treatment not carried out due to patient leaving prior to being seen by health care provider; R05 Cough; R07.9 Chest pain, unspecified; M54.9 Dorsalgia, unspecified; J44.9 Chronic obstructive pulmonary disease, unspecified; Z79.82 Long term (current) use of aspirin; Z79.899 Other long term (current) drug therapy
CPT/HCPCS: 36415; 71045; 80053; 84484; 85025; 93005; 93010; 99285-25

== ENCOUNTER 2021-04-26 19:09 | Observation (INO) | payer OTHER ==
[~2021-04-26] VITALS: Ht 154.9 cm; Wt 38.8 kg
[2021-04-26 19:46] LABS: BASOPHILS ABSOLUTE AUTO 0.02 K/mm3 (0.00-0.23); BASOPHILS PERCENT AUTO 0 % (0-2); EOSINOPHILS ABSOLUTE AUTO 0.01 K/mm3 (0.00-0.68); EOSINOPHILS PERCENT AUTO 0 % (0-6); Hematocrit 46.6 % (33.0-51.0); Hemoglobin 15.4 g/dL (11.5-16.0); IMMATURE GRAN ABSOLUTE AUTO 0.07 K/mm3 (0.00-0.10); IMMATURE GRAN PERCENT AUTO 1 % (0-1); LYMPHOCYTES ABSOLUTE AUTO 2.01 K/mm3 (0.84-5.20); LYMPHOCYTES PERCENT AUTO 14 % (21-46); MONOCYTES ABSOLUTE AUTO 1.19 K/mm3 (0.16-1.47); MONOCYTES PERCENT AUTO 8 % (4-13); Mean Corpuscular HGB 30.6 pg (26.0-34.0); Mean Corpuscular Volume 93 fL (80-100); Mean Platelet Volume 11.8 fL (9.1-12.4); NEUTROPHILS ABSOLUTE AUTO 10.98 K/mm3 (1.96-9.15); NEUTROPHILS PERCENT AUTO 77 % (41-73); Platelet Count 237 K/mm3 (150-400); RDW Coefficient Variation 13.3 % (11.7-14.2); RDW Standard Deviation 45.3 fL (35.1-46.3); Red Blood Cell Count 5.04 M/mm3 (3.80-5.20); White Blood Cell Count 14.28 K/mm3 (4.00-11.30)
[2021-04-26 20:07] LABS: Alanine Aminotransfer (ALT/SGP 35 U/L (12-78); Albumin, Blood 3.4 g/dL (3.4-5.0); Albumin/Globulin Ratio 0.8 (0.8-1.8); Alk Phos 84 U/L (50-136); Anion Gap 5 mmol/L (6-16); Aspartate Aminotrans (AST/SGOT 18 U/L (12-37); Bilirubin, Total 0.2 mg/dL (0.1-1.0); Blood Urea Nitrogen 19 mg/dL (8-24); CO2, Blood 28 mmol/L (21-32); Calcium, Blood 9.3 mg/dL (8.5-10.1); Chloride, Blood 109 mmol/L (98-108); Creatinine, Blood 0.79 mg/dL (0.40-1.00); Globulin, Blood 4.1 g/dL (2.2-4.0); Glomerular Filtration Rate >60 (60-); Glucose, Blood 145 mg/dL (70-99); Potassium, Blood 3.7 mmol/L (3.5-5.5); Sodium, Blood 142 mmol/L (136-145); Total Protein, Blood 7.5 g/dL (6.4-8.2); Troponin I <0.015 ng/mL (0.000-0.040)
[2021-04-26 20:09] LABS: International Normalized Ratio 0.95; Prothrombin Time Results 10.3 Sec (9.7-11.5)
[2021-04-26] MEDS ORDERED: LEVETIRACETAM PO ×2 (21:02)
--- NOTE | 2021-04-26 22:53 | NUR ---
ADMISSION: PATIENT IS RECIEVED FROM ER VIA STRETCHER. ABLE TO AMBULATE WITH A STEADY GAIT TO THE BED AND BATHROOM. VSS, NO REPORTS OF CHEST PAIN AT THIS TIME. PATIENT IS ORIENTED TO ROOM AND CALL ONEIL.
--- NOTE | 2021-04-27 07:48 | NUR ---
SHIFT SUMMARY: PATIENT IS A&OX4, INDEPENDANT IN THE ROOM. VSS, TELEMETRY IS NSR IN THE 60'S. MAINTAINS 02 SATS 90% OR ABOVE ON RA. NO REPORTS OF CHEST PAIN. PATIENT HAS ONLY HAD SIPS OF WATER THIS SHIFT.
[2021-04-27 09:04] LABS: BASOPHILS ABSOLUTE AUTO 0.06 K/mm3 (0.00-0.23); BASOPHILS PERCENT AUTO 1 % (0-2); EOSINOPHILS ABSOLUTE AUTO 0.11 K/mm3 (0.00-0.68); EOSINOPHILS PERCENT AUTO 1 % (0-6); Hematocrit 44.4 % (33.0-51.0); Hemoglobin 15.1 g/dL (11.5-16.0); IMMATURE GRAN ABSOLUTE AUTO 0.06 K/mm3 (0.00-0.10); IMMATURE GRAN PERCENT AUTO 1 % (0-1); LYMPHOCYTES ABSOLUTE AUTO 2.97 K/mm3 (0.84-5.20); LYMPHOCYTES PERCENT AUTO 30 % (21-46); MONOCYTES ABSOLUTE AUTO 0.88 K/mm3 (0.16-1.47); MONOCYTES PERCENT AUTO 9 % (4-13); Mean Corpuscular HGB 31.8 pg (26.0-34.0); Mean Corpuscular Volume 94 fL (80-100); Mean Platelet Volume 11.6 fL (9.1-12.4); NEUTROPHILS ABSOLUTE AUTO 5.99 K/mm3 (1.96-9.15); NEUTROPHILS PERCENT AUTO 60 % (41-73); Platelet Count 216 K/mm3 (150-400); RDW Coefficient Variation 13.4 % (11.7-14.2); RDW Standard Deviation 45.9 fL (35.1-46.3); Red Blood Cell Count 4.75 M/mm3 (3.80-5.20); White Blood Cell Count 10.07 K/mm3 (4.00-11.30)
[2021-04-27 09:31] LABS: Anion Gap 4 mmol/L (6-16); Blood Urea Nitrogen 17 mg/dL (8-24); Bun/Creatinine Ratio 27.2 (12.0-20.0); CO2, Blood 25 mmol/L (21-32); Calcium, Blood 8.3 mg/dL (8.5-10.1); Chloride, Blood 112 mmol/L (98-108); Creatinine, Blood 0.62 mg/dL (0.40-1.00); Glomerular Filtration Rate >60 (60-); Glucose, Blood 86 mg/dL (70-99); Potassium, Blood 3.7 mmol/L (3.5-5.5); Sodium, Blood 141 mmol/L (136-145); Troponin I <0.015 ng/mL (0.000-0.040)
--- NOTE | 2021-04-27 10:22 | NUR ---
Echocardiogram performed.
--- NOTE | 2021-04-27 16:16 | NUR ---
SHIFT SUMMARY NO ACUTE CHANGES NOTED TO PT THIS SHIFT. A&OX4, ABLE TO MAKE NEEDS KNOWN, PLEASANT AND COOPERATIVE TO CARE. NO C/O PAIN OR ANY DISCOMFORT. NO C/O CP, SOB, OR N&V. PT HAD STRESS TEST ORDERED. PT INDEPENDENT IN ROOM, CALLS APPROPRIATELY FOR ASSISTANCE. BED AT LOWEST POSITION. CALL LIGHT WITHIN REACH.
--- NOTE | 2021-04-28 02:04 | NUR ---
PT quiet & pleasant continues on tele monitor without CO. Tele monitor in place SR.
[2021-04-28 05:30] LABS: BASOPHILS ABSOLUTE AUTO 0.09 K/mm3 (0.00-0.23); BASOPHILS PERCENT AUTO 1 % (0-2); EOSINOPHILS ABSOLUTE AUTO 0.28 K/mm3 (0.00-0.68); EOSINOPHILS PERCENT AUTO 3 % (0-6); Hematocrit 47.8 % (33.0-51.0); Hemoglobin 16.2 g/dL (11.5-16.0); IMMATURE GRAN ABSOLUTE AUTO 0.04 K/mm3 (0.00-0.10); IMMATURE GRAN PERCENT AUTO 0 % (0-1); LYMPHOCYTES ABSOLUTE AUTO 2.49 K/mm3 (0.84-5.20); LYMPHOCYTES PERCENT AUTO 27 % (21-46); MONOCYTES ABSOLUTE AUTO 0.86 K/mm3 (0.16-1.47); MONOCYTES PERCENT AUTO 9 % (4-13); Mean Corpuscular HGB Conc 33.9 g/dL (31.5-36.5); Mean Corpuscular Volume 91 fL (80-100); Mean Platelet Volume 11.4 fL (9.1-12.4); NEUTROPHILS PERCENT AUTO 59 % (41-73); Platelet Count 235 K/mm3 (150-400); RDW Standard Deviation 43.9 fL (35.1-46.3); Red Blood Cell Count 5.23 M/mm3 (3.80-5.20); White Blood Cell Count 9.16 K/mm3 (4.00-11.30)
[2021-04-28 05:40] LABS: Albumin, Blood 3.3 g/dL (3.4-5.0); Anion Gap 4 mmol/L (6-16); Blood Urea Nitrogen 14 mg/dL (8-24); CO2, Blood 27 mmol/L (21-32); Calcium, Blood 8.9 mg/dL (8.5-10.1); Chloride, Blood 108 mmol/L (98-108); Creatinine, Blood 0.67 mg/dL (0.40-1.00); Glomerular Filtration Rate >60 (60-); Glucose, Blood 88 mg/dL (70-99); Phosphorus, Blood 3.4 mg/dL (2.5-4.9); Sodium, Blood 139 mmol/L (136-145)
[2021-04-28] MEDS ORDERED: NICO21TP TOP ×2 (08:47)
[2021-04-28] MEDS ORDERED: Prinivil10 MG PO ×2 (09:52)
--- NOTE | 2021-04-28 15:57 | NUR ---
DISCHARGE NOTE PT LEFT BY WC. PIV RMEOVED, MEDS FAXED TO SAVE ON. PAPERWORK REVIEWED, PCP AND CARDS APPT F/U CALLED FOR HER. WHEELED TO CAR BY KARI
== END 2021-04-28 15:21 | disposition home or self-care (01) ==
LOC: ER 19:09 → MEDS 19:10
PROVIDERS: Emergency Medicine; Family Medicine; Nurse Practitioner Acute Care; ADMIT Internal Medicine
DX: I24.9 Acute ischemic heart disease, unspecified (principal); J44.9 Chronic obstructive pulmonary disease, unspecified; G40.909 Epilepsy, unspecified, not intractable, without status epilepticus; F17.210 Nicotine dependence, cigarettes, uncomplicated; E78.5 Hyperlipidemia, unspecified; I73.9 Peripheral vascular disease, unspecified; F41.9 Anxiety disorder, unspecified
CPT/HCPCS: 36415; 71045; 78452; 80048; 80053; 80069; 83880; 84484; 85025; 85610; 85651; 85730; 86141; 93005; 93010; 93017; 93308; 93321; 94762; 96372; 99285-25; A9270; A9500; G0378; J0706; J1650; J2785

== ENCOUNTER 2022-11-04 10:26 | Inpatient (IN) | payer MEDICARE, OTHER ==
[~2022-11-04] VITALS: Ht 154.9 cm; Wt 40.0 kg
[~2022-11-04 10:26] MED LIST changes: +LEVETIRACETAM PO; +NICO21TP TOP; +Prinivil10 MG PO
[2022-11-04 12:00] LABS: Influenza A, PCR NEGATIVE (NEGATIVE); Influenza B, PCR NEGATIVE (NEGATIVE); Resp Syncytial Virus, PCR NEGATIVE (NEGATIVE); SARS-Cov-2 (COVID-19) PCR, MMC NEGATIVE (NEGATIVE)
[2022-11-04 12:04] LABS: BASOPHILS ABSOLUTE AUTO 0.11 K/mm3 (0.00-0.23); BASOPHILS PERCENT AUTO 1 % (0-2); EOSINOPHILS ABSOLUTE AUTO 0.02 K/mm3 (0.00-0.68); EOSINOPHILS PERCENT AUTO 0 % (0-6); Hematocrit 45.4 % (33.0-51.0); Hemoglobin 15.2 g/dL (11.5-16.0); IMMATURE GRAN ABSOLUTE AUTO 0.16 K/mm3 (0.00-0.10); IMMATURE GRAN PERCENT AUTO 1 % (0-1); LYMPHOCYTES ABSOLUTE AUTO 0.91 K/mm3 (0.84-5.20); LYMPHOCYTES PERCENT AUTO 6 % (21-46); MONOCYTES PERCENT AUTO 9 % (4-13); Mean Corpuscular HGB 30.6 pg (26.0-34.0); Mean Corpuscular HGB Conc 33.5 g/dL (31.5-36.5); Mean Corpuscular Volume 91 fL (80-100); Mean Platelet Volume 11.1 fL (9.1-12.4); NEUTROPHILS ABSOLUTE AUTO 13.51 K/mm3 (1.96-9.15); NEUTROPHILS PERCENT AUTO 83 % (41-73); Platelet Count 290 K/mm3 (150-400); RDW Coefficient Variation 13.3 % (11.7-14.2); RDW Standard Deviation 45.4 fL (35.1-46.3); Red Blood Cell Count 4.97 M/mm3 (3.80-5.20); White Blood Cell Count 16.21 K/mm3 (4.00-11.30)
[2022-11-04 12:29] LABS: Albumin, Blood 2.7 g/dL (3.4-5.0); Albumin/Globulin Ratio 0.5 (0.8-1.8); Bilirubin, Total 0.3 mg/dL (0.1-1.0); Bun/Creatinine Ratio 36.9 (12.0-20.0); Calcium, Blood 9.5 mg/dL (8.5-10.1); Creatinine, Blood 0.52 mg/dL (0.40-1.00); Potassium, Blood 4.1 mmol/L (3.5-5.5); Total Protein, Blood 7.7 g/dL (6.4-8.2)
[2022-11-04 16:06] LABS: Source, Urine Clean Catch
[2022-11-04 16:28] LABS: Appearance, Urine Clear (Clear); Blood, Urine 2+ (Neg); Color, Urine Amber (P-Yellow); Glucose Qualitative, Urine Neg (Neg); Ketones, Urine 1+ (Neg); Leukocyte Esterase, Urine Neg (Neg); Nitrite, Urine Neg (Neg); Protein, Urine 3+ (Neg); Urobilinogen, Urine 1+ (Normal)
[2022-11-04 16:42] LABS: Bilirubin, Urine 1+ (Neg)
[2022-11-04 16:43] LABS: Bacteria Many /hpf; Granular Casts 0-2 /lpf (0); Squamous Epithelial Cells Mod /hpf (Few)
[2022-11-05 04:55] LABS: BASOPHILS ABSOLUTE AUTO 0.04 K/mm3 (0.00-0.23); BASOPHILS PERCENT AUTO 0 % (0-2); EOSINOPHILS ABSOLUTE AUTO 0.08 K/mm3 (0.00-0.68); EOSINOPHILS PERCENT AUTO 1 % (0-6); Hematocrit 39.9 % (33.0-51.0); Hemoglobin 12.9 g/dL (11.5-16.0); IMMATURE GRAN ABSOLUTE AUTO 0.21 K/mm3 (0.00-0.10); IMMATURE GRAN PERCENT AUTO 2 % (0-1); LYMPHOCYTES ABSOLUTE AUTO 0.47 K/mm3 (0.84-5.20); LYMPHOCYTES PERCENT AUTO 4 % (21-46); MONOCYTES ABSOLUTE AUTO 0.15 K/mm3 (0.16-1.47); MONOCYTES PERCENT AUTO 1 % (4-13); Mean Corpuscular HGB 30.7 pg (26.0-34.0); Mean Corpuscular HGB Conc 32.3 g/dL (31.5-36.5); Mean Corpuscular Volume 95 fL (80-100); NEUTROPHILS ABSOLUTE AUTO 10.89 K/mm3 (1.96-9.15); NEUTROPHILS PERCENT AUTO 92 % (41-73); Platelet Count 247 K/mm3 (150-400); RDW Coefficient Variation 13.5 % (11.7-14.2); RDW Standard Deviation 47.8 fL (35.1-46.3); White Blood Cell Count 11.84 K/mm3 (4.00-11.30)
[2022-11-05 05:13] LABS: Bun/Creatinine Ratio 27.5 (12.0-20.0); Calcium, Blood 8.6 mg/dL (8.5-10.1); Creatinine, Blood 0.44 mg/dL (0.40-1.00); Potassium, Blood 4.2 mmol/L (3.5-5.5)
--- NOTE | 2022-11-05 16:42 | NUR ---
SHIFT SUMMARY PT AWAKE AT START OF SHIFT, RESTING QUIETLY LF. PT REPORTED FEELING AND LOOKING A LITTLE BETTER THAN YESTERDAY. BREATHING EASIER MOST OF THE TIME. PT REPORTS STRUGGLING DURING COUGHING EPISODES. DR BENAVIDES AND DR VASQUEZ BOTH IN TO SEE PT AND DISCUSS PLAN OF CARE. PT ENCOURGED TO STOP SMOKING. DR VASQUEZ ORDERED NICOTINE PATCH AND TESSALON FOR COUGH. PT UP FOR HOME O2 EVAL. PER RT, PT WILL NEED TO GO HOME ON 2L O2. CARE MANAGEMENT UPDATED. PT LATER UP TO SHOWER, DOING WELL. SR ON TELE. NO C/O. ABLE TO MAKE NEEDS KNOWN.
--- NOTE | 2022-11-05 18:04 | NUR ---
DISCHARGE OXYGEN ARRANGED BY CARE MANAGEMENT FOR 11/06/22. CALL DULCE MARIA AT [facility] FOR DELIVERY @ [phone] WHEN READY AND HE WILL BRING IT OVER. ALREADY IN HIS TRUCK AND READY TO BRING OVER.
--- NOTE | 2022-11-06 07:24 | NUR ---
A/OX4; CALM/ PLEASANT/ COOPERATIVE. DENIES PAIN AT THIS TIME. SBA TO BR. 2L O2 VIA NC. COARSE, CONGESTED COUGH; PRN TESSLON CAPSULE GIVEN. TELE: SR WITH HR 70s TO 80s PLAN IS TO DC TO HOME TODAY WITH HOME O2, HOME HEALTH ASSISTANCE, AND PO ABX. SLEEP PROMOTED. CALL LIGHT IN REACH; ENCOURAGED TO MAKE NEEDS KNOWN. BED ALARM SET.
[2022-11-06 09:17] LABS: BASOPHILS ABSOLUTE AUTO 0.08 K/mm3 (0.00-0.23); BASOPHILS PERCENT AUTO 1 % (0-2); EOSINOPHILS PERCENT AUTO 0 % (0-6); Hematocrit 40.3 % (33.0-51.0); Hemoglobin 13.3 g/dL (11.5-16.0); IMMATURE GRAN ABSOLUTE AUTO 0.71 K/mm3 (0.00-0.10); IMMATURE GRAN PERCENT AUTO 5 % (0-1); LYMPHOCYTES ABSOLUTE AUTO 1.42 K/mm3 (0.84-5.20); LYMPHOCYTES PERCENT AUTO 9 % (21-46); MONOCYTES ABSOLUTE AUTO 0.89 K/mm3 (0.16-1.47); MONOCYTES PERCENT AUTO 6 % (4-13); Mean Corpuscular Volume 94 fL (80-100); Mean Platelet Volume 10.9 fL (9.1-12.4); NEUTROPHILS ABSOLUTE AUTO 12.03 K/mm3 (1.96-9.15); NEUTROPHILS PERCENT AUTO 80 % (41-73); Platelet Count 301 K/mm3 (150-400); RDW Coefficient Variation 13.4 % (11.7-14.2); RDW Standard Deviation 45.8 fL (35.1-46.3); Red Blood Cell Count 4.29 M/mm3 (3.80-5.20); White Blood Cell Count 15.13 K/mm3 (4.00-11.30)
[2022-11-06 09:51] LABS: Albumin, Blood 2.4 g/dL (3.4-5.0); Albumin/Globulin Ratio 0.6 (0.8-1.8); Bilirubin, Total 0.2 mg/dL (0.1-1.0); Bun/Creatinine Ratio 33.7 (12.0-20.0); Calcium, Blood 9.3 mg/dL (8.5-10.1); Creatinine, Blood 0.48 mg/dL (0.40-1.00); Globulin, Blood 4.2 g/dL (2.2-4.0); Potassium, Blood 3.9 mmol/L (3.5-5.5); Total Protein, Blood 6.6 g/dL (6.4-8.2)
--- NOTE | 2022-11-06 18:39 | NUR ---
SHIFT SUMMARY: PT A&OX4, PLEASANT AND COOPERATIVE. PT RECEVIED MEDICATIONS AT THE BEGINNING OF THE SHIFT. DURING ASSESSMENT PT FACE WAS FLUSHED, PT STATED SHE FELT SWEATY BEHIND HER NECK. PT BP WAS 135/81 EVELVATED BUT CONTIUNED TO MONTIOR PT. LATER IN THE SHIFT PT APPEARED WITH INCREASED FLUSHING IN THE FACE, HANDS, AND TOES. PT BP 152/93 DR. KELLEY CONTACTED AND CAME TO ASSESS PT. DR. KELLEY VERBAL ORDER IF PT BP >150/90 TO CALL. PT RECEVIED LISINOPRIL 5MG NOW. PT BP REASSESSED 1HR LATER, BP 157/96. DR. POWELL CONTACTED AND AMLODIPINE 5MG NOW ORDERED AND AMLODIPINE 5MG DAILY. PT IN BED WITH CALL LIGHT WITHIN REACH.
[2022-11-07 05:08] LABS: Hematocrit 41.9 % (33.0-51.0); Hemoglobin 13.4 g/dL (11.5-16.0); Mean Corpuscular HGB 30.2 pg (26.0-34.0); Mean Corpuscular Volume 94 fL (80-100); Mean Platelet Volume 10.8 fL (9.1-12.4); Platelet Count 311 K/mm3 (150-400); RDW Coefficient Variation 13.3 % (11.7-14.2); RDW Standard Deviation 46.3 fL (35.1-46.3); Red Blood Cell Count 4.44 M/mm3 (3.80-5.20); White Blood Cell Count 15.81 K/mm3 (4.00-11.30)
[2022-11-07 05:40] LABS: Albumin, Blood 2.4 g/dL (3.4-5.0); Albumin/Globulin Ratio 0.6 (0.8-1.8); Bilirubin, Total 0.1 mg/dL (0.1-1.0); Calcium, Blood 8.9 mg/dL (8.5-10.1); Creatinine, Blood 0.46 mg/dL (0.40-1.00); Globulin, Blood 4.2 g/dL (2.2-4.0); Potassium, Blood 4.7 mmol/L (3.5-5.5); Total Protein, Blood 6.6 g/dL (6.4-8.2)
[2022-11-07 06:11] LABS: BAND PERCENT MAN 2 % (0-8); BASOPHILS PERCENT MAN 0 % (0-2); EOSINOPHILS PERCENT MAN 0 % (0-6); LYMPHOCYTES ABSOLUTE MAN 0.31 K/mm3 (0.84-5.20); LYMPHOCYTES PERCENT MAN 2 % (21-46); METAMYELOCYTE ABSOLUTE MAN 0.15 K/mm3 (0.00-0.00); METAMYELOCYTE PERCENT MAN 1 % (0-0); MONOCYTES ABSOLUTE MAN 0.31 K/mm3 (0.16-1.47); MONOCYTES PERCENT MAN 2 % (4-13); MYELOCYTE ABSOLUTE MAN 0.63 K/mm3 (0.00-0.00); MYELOCYTE PERCENT MAN 4 % (0-0); NEUTROPHILS ABSOLUTE MAN 14.38 K/mm3 (1.96-9.15); SEG NEUTROPHILS PERCENT MAN 89 % (41-73); TOTAL CELLS COUNTED 100
--- NOTE | 2022-11-07 07:43 | NUR ---
A/OX4; CALM PLEASANT COOPERATIVE DENIES PAIN AT THIS TIME. SBA TO BR. 2L O2 VIA NC. COARSE, CONGESTED COUGH. PLAN IS TO DC TO HOME TODAY WITH HOME O2, HOME HEALTH ASSISTANCE, AND PO ABX. SLEEP PROMOTED. CALL LIGHT IN REACH; ENCOURAGED TO MAKE NEEDS KNOWN. BED ALARM SET.
[2022-11-07] MEDS ORDERED: ACET325 PO (14:09)
[2022-11-07] MEDS ORDERED: Amlodipine Besyl5 MG PO (14:10)
[2022-11-07] MEDS ORDERED: Prinivil10 MG PO (14:11)
[2022-11-07] MEDS ORDERED: IPRAT-ALBUT 0.5-3 ML INH (14:11)
[2022-11-07] MEDS ORDERED: Prednisone10 MG PO (14:13)
[2022-11-07] MEDS ORDERED: NICOTINE1 EAC1 TOP (14:14)
--- NOTE | 2022-11-07 15:41 | NUR ---
DISCHARGE NOTE PT DISCHARGED TO HOME WITH HOME HEALTH. IV REMOVED SUCCESSFULLY. MEDICATIONS WERE FAXED TO THE PHARMACY OF HER CHOICE. DISCHARGE INSTRUCTIONS AND EDUCATION WERE PROVIDED TO THE PT. HER SON CAME AND PICKED HER UP TO TAKE HER HOME.
== END 2022-11-07 15:15 | disposition home health service (06) | DRG 189 ==
LOC: ER 10:26 → MEDS 17:15 → ERHOLD 17:15 → MEDS 18:22
PROVIDERS: Family Medicine; Physician Assistant; Student in an Organized Health Care Education/Training Program; ADMIT Family Medicine
DX: J96.01 Acute respiratory failure with hypoxia (principal); J44.1 Chronic obstructive pulmonary disease with (acute) exacerbation; F41.9 Anxiety disorder, unspecified; E78.5 Hyperlipidemia, unspecified; G40.909 Epilepsy, unspecified, not intractable, without status epilepticus; F17.210 Nicotine dependence, cigarettes, uncomplicated; I73.9 Peripheral vascular disease, unspecified; I10 Essential (primary) hypertension; I20.9 Angina pectoris, unspecified; F12.10 Cannabis abuse, uncomplicated; D72.829 Elevated white blood cell count, unspecified; Z20.822 Contact with and (suspected) exposure to COVID-19; Z79.899 Other long term (current) drug therapy; Z79.82 Long term (current) use of aspirin; Z79.51 Long term (current) use of inhaled steroids; Z79.811 Long term (current) use of aromatase inhibitors; Z79.02 Long term (current) use of antithrombotics/antiplatelets; Z98.890 Other specified postprocedural states; Z87.19 Personal history of other diseases of the digestive system
CPT/HCPCS: 0241U; 36415; 71046; 80048; 80053; 81001; 83605; 84145; 84484; 85025; 87040; 87086; 93005; 93010; 94640; 94664; 94760; 94761; 96365; 99285-25; A9270; J0456; J0696; J1650; J2405; J2930; J7030; J7050

== ENCOUNTER 2024-09-09 14:25 | Inpatient (IN) | payer MEDICARE, OTHER ==
[~2024-09-09] VITALS: Ht 154.9 cm; Wt 43.4 kg
[~2024-09-09 14:25] MED LIST changes: +ACET325 PO; +Amlodipine Besyl5 MG PO; +IPRAT-ALBUT 0.5-3 ML INH; +NICOTINE1 EAC1 TOP; +Prednisone10 MG PO
[2024-09-09] MEDS ORDERED: Ondansetron HCl 2 MG / ML 2ML Vial IV ONE (15:30)
[2024-09-09 16:25] LABS: Influenza A, PCR NEGATIVE (NEGATIVE); Influenza B, PCR NEGATIVE (NEGATIVE); Resp Syncytial Virus, PCR NEGATIVE (NEGATIVE)
[2024-09-09 17:43] LABS: SARS-Cov-2 (COVID-19) PCR, MMC POSITIVE (NEGATIVE)
[2024-09-09 18:02] LABS: BASOPHILS ABSOLUTE AUTO 0.05 K/mm3 (0.00-0.23); BASOPHILS PERCENT AUTO 0 % (0-2); EOSINOPHILS ABSOLUTE AUTO 0.01 K/mm3 (0.00-0.68); EOSINOPHILS PERCENT AUTO 0 % (0-6); Hematocrit 46.2 % (33.0-51.0); Hemoglobin 15.4 g/dL (11.5-16.0); IMMATURE GRAN ABSOLUTE AUTO 0.14 K/mm3 (0.00-0.10); IMMATURE GRAN PERCENT AUTO 1 % (0-1); LYMPHOCYTES ABSOLUTE AUTO 0.63 K/mm3 (0.84-5.20); LYMPHOCYTES PERCENT AUTO 4 % (21-46); MONOCYTES ABSOLUTE AUTO 1.03 K/mm3 (0.16-1.47); MONOCYTES PERCENT AUTO 7 % (4-13); Mean Corpuscular HGB Conc 33.3 g/dL (31.5-36.5); Mean Corpuscular Volume 90 fL (80-100); NEUTROPHILS ABSOLUTE AUTO 13.24 K/mm3 (1.96-9.15); NEUTROPHILS PERCENT AUTO 88 % (41-73); Platelet Count 265 K/mm3 (150-400); RDW Coefficient Variation 13.3 % (11.7-14.2); RDW Standard Deviation 44.1 fL (35.1-46.3); Red Blood Cell Count 5.14 M/mm3 (3.80-5.20)
[2024-09-09 18:23] LABS: Albumin, Blood 2.7 g/dL (3.4-5.0); Albumin/Globulin Ratio 0.5 (0.8-1.8); Bilirubin, Total 1.1 mg/dL (0.1-1.0); Bun/Creatinine Ratio 38.5 (12.0-20.0); Calcium, Blood 9.5 mg/dL (8.5-10.1); Creatinine, Blood 0.55 mg/dL (0.40-1.00); Globulin, Blood 5.1 g/dL (2.2-4.0); Total Protein, Blood 7.8 g/dL (6.4-8.2)
[2024-09-09 18:24] LABS: Base Excess Venous 1.2 mmol/L; Bicarbonate Venous 25.2 mmol/L (24.0-30.0); PCO2 Venous 42.2 mmHg (38-42)
[2024-09-09] MEDS ORDERED: Lactated Ringer's 1,000 ML IV ONE (18:40)
[2024-09-09] MEDS ORDERED: Albuterol 2.5 MG/3 ML VIAL INH PRN (19:55)
[2024-09-09] MEDS ORDERED: FLU VACC TS2024-25(6MOS UP)/PF 45 MCG/0.5 ML SYRINGE IM ONE (20:00)
[2024-09-09] MEDS ORDERED: Ondansetron HCl 2 MG / ML 2ML Vial IV PRN (20:00)
[2024-09-09] MEDS ORDERED: Ipratropium/Albuterol SulF 2.5-0.5MG/3 ML Amp INH SCH (20:00)
[2024-09-09] MEDS ORDERED: Remdesivir (EUA) 200 MG in NS 250 ML IV ONE (20:10)
[2024-09-09] MEDS ORDERED: LevETIRAcetam 500 MG Tab PO SCH (21:00)
[2024-09-09] MEDS ORDERED: Azithromycin 500 MG in NS 250 ML IV SCH (21:00)
[2024-09-09] MEDS ORDERED: BusPIRone HCl 10 MG Tab PO SCH (21:00)
[2024-09-09 22:08] VITALS: BP 136/81
[2024-09-09] MEDS ORDERED: NS 250 ML IV PRN (22:35)
[2024-09-10] MEDS ORDERED: MethylPREDNISolone Sod Succ 125 MG Vial IV SCH
[2024-09-10 04:07] VITALS: BP 130/71
--- NOTE | 2024-09-10 05:45 | NUR ---
NEW ADMIT/OLAP DEVELOPER SUMMARY PT A/OX4. ADMIT FOR COVID 19 POSITIVE AND WEAKNESS. PT STATES COVID SYMPTOMS STARTED 9 DAYS AGO BUT STARTED TO FEEL MUCH WORSE 4 DAYS AGO--PT REPORTS EXTREME WEAKNESS AND FATIGUE. PT HX OF COPD. PT USES OXYGEN AT HOME 1-2 LPM NEEDED; PT STATES, PRIOR TO GETTING SICK, SHE HAS NOT NEEDED OXYGE MUCH. PT STATES SHE LIVES IN [facility] WITH FAMILY LIVING CLOSE BY. PT DENIES SAFETY CONCERNS. PT IS NOT ABLE TO PROVIDE SPECIFICS ABOUT MEDICATIONS SHE TAKES AT HOME. PT STATES SHE DOES NOT TAKE BLOOD PRESSURE MEDICATIONS AT THIS TIME--PT STATES SHE WAS STARTED ON BP MEDS BUT QUIT TAKING SOON AFTER BECAUSE SHE WAS DIZZY/LETHARGIC. ORIENTED PT TO ROOM AND CALL LIGHT. PT IS AN EVERY DAY SMOKER. PT DENIES IGNITION SOURCES. OFFERED BUZZ PATCH--PT DECLINED AT THIS TIME.
[2024-09-10 06:54] LABS: BASOPHILS ABSOLUTE AUTO 0.02 K/mm3 (0.00-0.23); BASOPHILS PERCENT AUTO 0 % (0-2); EOSINOPHILS PERCENT AUTO 0 % (0-6); Hematocrit 42.1 % (33.0-51.0); Hemoglobin 13.9 g/dL (11.5-16.0); IMMATURE GRAN ABSOLUTE AUTO 0.11 K/mm3 (0.00-0.10); IMMATURE GRAN PERCENT AUTO 1 % (0-1); LYMPHOCYTES ABSOLUTE AUTO 0.51 K/mm3 (0.84-5.20); LYMPHOCYTES PERCENT AUTO 6 % (21-46); MONOCYTES ABSOLUTE AUTO 0.13 K/mm3 (0.16-1.47); MONOCYTES PERCENT AUTO 2 % (4-13); Mean Corpuscular HGB 29.9 pg (26.0-34.0); Mean Corpuscular Volume 91 fL (80-100); Mean Platelet Volume 11.4 fL (9.1-12.4); NEUTROPHILS ABSOLUTE AUTO 7.79 K/mm3 (1.96-9.15); NEUTROPHILS PERCENT AUTO 91 % (41-73); Platelet Count 246 K/mm3 (150-400); RDW Coefficient Variation 13.4 % (11.7-14.2); RDW Standard Deviation 44.6 fL (35.1-46.3); Red Blood Cell Count 4.65 M/mm3 (3.80-5.20); White Blood Cell Count 8.56 K/mm3 (4.00-11.30)
[2024-09-10 07:07] LABS: Bun/Creatinine Ratio 36.8 (12.0-20.0); Calcium, Blood 8.6 mg/dL (8.5-10.1); Creatinine, Blood 0.41 mg/dL (0.40-1.00); Magnesium, Blood 1.8 mg/dL (1.6-2.4); Potassium, Blood 4.1 mmol/L (3.5-5.5)
[2024-09-10 07:51] VITALS: BP 124/73
[2024-09-10] MEDS ORDERED: Enoxaparin 40 MG/0.4 ML SYR SC SCH (09:00)
[2024-09-10] MEDS ORDERED: AmLODIPine Besylate 5 MG Tab PO SCH (09:00)
[2024-09-10] MEDS ORDERED: LevETIRAcetam 500 MG Tab PO SCH (09:00)
[2024-09-10] MEDS ORDERED: Lisinopril 10 MG Tab PO SCH (09:00)
[2024-09-10] MEDS ORDERED: Atorvastatin 40 MG Tab PO SCH (09:00)
[2024-09-10] MEDS ORDERED: Aspirin 81 MG Chew PO SCH (09:00)
[2024-09-10 15:34] VITALS: BP 119/65
[2024-09-10] MEDS ORDERED: Nicotine 21 MG PATCH TOP SCH (18:25)
--- NOTE | 2024-09-10 18:56 | NUR ---
PT STATES IMPROVMENT WITH SOB AND FATIGUE. ORDER TO TITRATE O2 TO RA TOLERATED AND SATURATION>88, NOW ON 2L. PT GETTING ANTSY FOR TOBACCO, PATCH ORDERED AND APPLIED. INDEPENDENT IN ROOM. CALLS APPROPRIATLY
[2024-09-10 20:41] VITALS: BP 127/87
[2024-09-10] MEDS ORDERED: Remdesivir (EUA) 100 MG in NS 250 ML IV SCH (21:00)
[2024-09-11] MEDS ORDERED: MethylPREDNISolone Sod Succ 125 MG Vial IV SCH
[2024-09-11 03:43] VITALS: BP 132/79
[2024-09-11 05:56] LABS: BASOPHILS ABSOLUTE AUTO 0.01 K/mm3 (0.00-0.23); BASOPHILS PERCENT AUTO 0 % (0-2); EOSINOPHILS PERCENT AUTO 0 % (0-6); Hematocrit 38.8 % (33.0-51.0); Hemoglobin 12.9 g/dL (11.5-16.0); IMMATURE GRAN ABSOLUTE AUTO 0.17 K/mm3 (0.00-0.10); IMMATURE GRAN PERCENT AUTO 1 % (0-1); LYMPHOCYTES ABSOLUTE AUTO 0.53 K/mm3 (0.84-5.20); LYMPHOCYTES PERCENT AUTO 4 % (21-46); MONOCYTES ABSOLUTE AUTO 0.36 K/mm3 (0.16-1.47); MONOCYTES PERCENT AUTO 3 % (4-13); Mean Corpuscular HGB 29.8 pg (26.0-34.0); Mean Corpuscular HGB Conc 33.2 g/dL (31.5-36.5); Mean Corpuscular Volume 90 fL (80-100); Mean Platelet Volume 11.3 fL (9.1-12.4); NEUTROPHILS ABSOLUTE AUTO 10.85 K/mm3 (1.96-9.15); NEUTROPHILS PERCENT AUTO 91 % (41-73); Platelet Count 266 K/mm3 (150-400); RDW Coefficient Variation 13.2 % (11.7-14.2); RDW Standard Deviation 43.8 fL (35.1-46.3); Red Blood Cell Count 4.33 M/mm3 (3.80-5.20); White Blood Cell Count 11.92 K/mm3 (4.00-11.30)
[2024-09-11 06:25] LABS: Bun/Creatinine Ratio 46.4 (12.0-20.0); Calcium, Blood 9.4 mg/dL (8.5-10.1); Creatinine, Blood 0.43 mg/dL (0.40-1.00); Potassium, Blood 4.2 mmol/L (3.5-5.5)
--- NOTE | 2024-09-11 06:42 | NUR ---
SHIFT SUMMARY PT IS PLEASANT AND COOPERATIVE WITH CARE. HAS STATED SHE IS "STARTING TO FEEL ORNERY, WHICH MEANS I'M STARTING TO FEEL BETTER." PT STATED HER COUGH HAD BECOME MORE PRODUCTIVE, WITH YELLOW MUCUS. STATES "IT IS MUCH EASIER TO BREATHE NOW, THOUGH." PT SLEPT DURATION OF SHIFT WHEN NOT BEING ADMINISTERED MEDICATIONS. PT IS READY TO GO HOME.
[2024-09-11 07:54] VITALS: BP 133/83
[2024-09-11] MEDS ORDERED: Sertraline HCl 50 MG Tab PO SCH (09:00)
[2024-09-11] MEDS ORDERED: PRED20 PO (11:08)
[2024-09-11] MEDS ORDERED: TRELEGY ELLIPT1 EACH INH (11:09)
[2024-09-11] MEDS ORDERED: AZIT500 PO (11:19)
== END 2024-09-11 14:23 | disposition home or self-care (01) | DRG 177 ==
LOC: ER 14:25 → ERHOLD 19:55 → MEDS 19:55
PROVIDERS: Emergency Medicine; Nurse Practitioner Acute Care; Student in an Organized Health Care Education/Training Program; ADMIT Internal Medicine
PROC: XW033E5 Introduction of Remdesivir Anti-infective into Peripheral Vein, Percutaneous Approach, New Technology Group 5 (ICD-10-PCS; principal; 2024-09-09)
DX: U07.1 COVID-19 (principal); J96.01 Acute respiratory failure with hypoxia; J44.1 Chronic obstructive pulmonary disease with (acute) exacerbation; E46 Unspecified protein-calorie malnutrition; Z68.1 Body mass index [BMI] 19.9 or less, adult; F41.9 Anxiety disorder, unspecified; F32.A Depression, unspecified; E78.5 Hyperlipidemia, unspecified; E86.0 Dehydration; E88.09 Other disorders of plasma-protein metabolism, not elsewhere classified; G40.909 Epilepsy, unspecified, not intractable, without status epilepticus; I73.9 Peripheral vascular disease, unspecified; F17.210 Nicotine dependence, cigarettes, uncomplicated; Z71.6 Tobacco abuse counseling; Z79.899 Other long term (current) drug therapy; Z79.811 Long term (current) use of aromatase inhibitors; Z79.51 Long term (current) use of inhaled steroids; Z79.82 Long term (current) use of aspirin; Z87.19 Personal history of other diseases of the digestive system
CPT/HCPCS: 0241U; 36415; 71046; 80048; 80053; 82803; 83735; 83880; 84145; 84484; 85025; 94640; 94664; 94760; 94761; 99285-25; A9270; J0248; J0456; J1650; J2919; J7050; J7120

== ENCOUNTER 2025-02-12 18:11 | Inpatient (IN) | payer MEDICARE, OTHER ==
[~2025-02-12] VITALS: Ht 154.9 cm; Wt 39.9 kg
[~2025-02-12 18:11] MED LIST changes: +AZIT500 PO; +PRED20 PO; +TRELEGY ELLIPT1 EACH INH
[2025-02-12 18:46] LABS: BASOPHILS ABSOLUTE AUTO 0.08 K/mm3 (0.00-0.23); BASOPHILS PERCENT AUTO 1 % (0-2); EOSINOPHILS ABSOLUTE AUTO 0.05 K/mm3 (0.00-0.68); EOSINOPHILS PERCENT AUTO 0 % (0-6); Hematocrit 48.9 % (33.0-51.0); Hemoglobin 16.5 g/dL (11.5-16.0); IMMATURE GRAN PERCENT AUTO 1 % (0-1); LYMPHOCYTES ABSOLUTE AUTO 1.02 K/mm3 (0.84-5.20); LYMPHOCYTES PERCENT AUTO 7 % (21-46); MONOCYTES ABSOLUTE AUTO 1.21 K/mm3 (0.16-1.47); MONOCYTES PERCENT AUTO 8 % (4-13); Mean Corpuscular HGB 29.9 pg (26.0-34.0); Mean Corpuscular HGB Conc 33.7 g/dL (31.5-36.5); Mean Corpuscular Volume 89 fL (80-100); Mean Platelet Volume 11.5 fL (9.1-12.4); NEUTROPHILS ABSOLUTE AUTO 12.43 K/mm3 (1.96-9.15); NEUTROPHILS PERCENT AUTO 84 % (41-73); Platelet Count 270 K/mm3 (150-400); RDW Coefficient Variation 13.3 % (11.7-14.2); RDW Standard Deviation 43.8 fL (35.1-46.3); Red Blood Cell Count 5.51 M/mm3 (3.80-5.20); White Blood Cell Count 14.89 K/mm3 (4.00-11.30)
[2025-02-12 19:15] LABS: Albumin, Blood 3.1 g/dL (3.4-5.0); Albumin/Globulin Ratio 0.7 (0.8-1.8); Bilirubin, Total 0.4 mg/dL (0.1-1.0); Bun/Creatinine Ratio 28.3 (12.0-20.0); Creatinine, Blood 0.57 mg/dL (0.40-1.00); Globulin, Blood 4.7 g/dL (2.2-4.0); Potassium, Blood 3.5 mmol/L (3.5-5.5); Total Protein, Blood 7.8 g/dL (6.4-8.2)
[2025-02-12] MEDS ORDERED: Azithromycin 500 MG in NS 250 ML IV ONE (21:30)
[2025-02-12] MEDS ORDERED: CefTRIAXone Sodium 1,000 MG in NS 100 ML IV ONE (21:30)
[2025-02-12] MEDS ORDERED: Albuterol 2.5 MG/3 ML VIAL INH SCH (21:35)
[2025-02-12] MEDS ORDERED: Ipratropium Bromide INH 0.02% 0.5 mg/2.5ML Vial INH SCH (21:35)
[2025-02-12] MEDS ORDERED: MethylPREDNISolone Sod Succ 125 MG Vial IV ONE (21:35)
[2025-02-12 23:35] LABS: Base Excess Venous -1.6 mmol/L; Bicarbonate Venous 23.1 mmol/L (24.0-30.0); PCO2 Venous 41.2 mmHg (38-42); pH Blood Venous 7.37 (7.34-7.37)
[2025-02-12] MEDS ORDERED: FLU VACC TS2024-25(6MOS UP)/PF 45 MCG/0.5 ML SYRINGE IM ONE (23:45)
[2025-02-13] VITALS (7 sets, daily range): BP systolic 110–138; BP diastolic 78–97
[2025-02-13] MEDS ORDERED: Ipratropium/Albuterol SulF 2.5-0.5MG/3 ML Amp INH SCH (00:05)
[2025-02-13] MEDS ORDERED: Mometasone/Formoterol MDI 100/5 mcg 13 GM INH SCH (01:45)
--- NOTE | 2025-02-13 02:05 | NUR ---
ADMISSION REPORT RECEIVED FROM ER NURSE. PATIENT ARRIVES TO PCU 10, ABLE TO STAND AND PIVOT TO PCU BED. PATIENT AMBULATED TO BATHROOM, VOIDED AND CHANGED INTO GOWN INDEPENDENTLY. PATIENT ALERT, ORIENTED x4, ABLE TO COMMUNICATE NEEDS. BP STABLE. ON 3L NC WITH SPO2 >90%. REPORTS SOB WITH ACTIVITY. TELE READING SR 90s, DENIES CHEST PAIN. PATIENT REQUESTING WATER AND CRACKERS. RESPIRATORY PANEL COLLECTED BY ER. PATIENT ORIENTED TO ROOM AND CALL LIGHT SYSTEM.
[2025-02-13 02:13] LABS: BASOPHILS ABSOLUTE AUTO 0.03 K/mm3 (0.00-0.23); BASOPHILS PERCENT AUTO 0 % (0-2); EOSINOPHILS PERCENT AUTO 0 % (0-6); Hematocrit 45.8 % (33.0-51.0); Hemoglobin 15.2 g/dL (11.5-16.0); IMMATURE GRAN ABSOLUTE AUTO 0.09 K/mm3 (0.00-0.10); IMMATURE GRAN PERCENT AUTO 1 % (0-1); LYMPHOCYTES PERCENT AUTO 3 % (21-46); MONOCYTES ABSOLUTE AUTO 0.25 K/mm3 (0.16-1.47); MONOCYTES PERCENT AUTO 2 % (4-13); Mean Corpuscular HGB Conc 33.2 g/dL (31.5-36.5); Mean Corpuscular Volume 91 fL (80-100); Mean Platelet Volume 11.3 fL (9.1-12.4); NEUTROPHILS ABSOLUTE AUTO 14.15 K/mm3 (1.96-9.15); NEUTROPHILS PERCENT AUTO 95 % (41-73); Platelet Count 242 K/mm3 (150-400); RDW Coefficient Variation 13.4 % (11.7-14.2); RDW Standard Deviation 45.2 fL (35.1-46.3); Red Blood Cell Count 5.06 M/mm3 (3.80-5.20); White Blood Cell Count 14.92 K/mm3 (4.00-11.30)
[2025-02-13 02:20] LABS: Influenza A, PCR NEGATIVE (NEGATIVE); Influenza B, PCR NEGATIVE (NEGATIVE); Resp Syncytial Virus, PCR NEGATIVE (NEGATIVE); SARS-Cov-2 (COVID-19) PCR, MMC NEGATIVE (NEGATIVE)
[2025-02-13 02:27] LABS: Albumin, Blood 2.7 g/dL (3.4-5.0); Albumin/Globulin Ratio 0.6 (0.8-1.8); Bilirubin, Total 0.2 mg/dL (0.1-1.0); Bun/Creatinine Ratio 28.4 (12.0-20.0); Calcium, Blood 8.4 mg/dL (8.5-10.1); Creatinine, Blood 0.49 mg/dL (0.40-1.00); Globulin, Blood 4.5 g/dL (2.2-4.0); Magnesium, Blood 1.7 mg/dL (1.6-2.4); Potassium, Blood 3.5 mmol/L (3.5-5.5); Total Protein, Blood 7.2 g/dL (6.4-8.2)
--- NOTE | 2025-02-13 05:28 | NUR ---
SHIFT SUMMARY PATIENT ALERT, ORIENTED x4. ABLE TO MAKE NEEDS KNOWN TO STAFF. BP STABLE. ON 3L NC WITH SPO2 >90%. PATIENT TACHYPNEIC WITH ACTIVITY BUT ABLE TO RECOVER WITH DEEP BREATHING. TELE READING SR. NO OTHER CHANGES SINCE ADMISSION NOTE. WILL REPORT TO DAY SHIFT RN.
[2025-02-13] MEDS ORDERED: Benzonatate 100 MG Cap PO PRN (08:35)
[2025-02-13] MEDS ORDERED: MethylPREDNISolone Sod Succ 125 MG Vial IV SCH (09:00)
[2025-02-13] MEDS ORDERED: LevETIRAcetam 500 MG Tab PO SCH ×2 (09:00→18:00)
[2025-02-13] MEDS ORDERED: Aspirin 81 MG Chew PO SCH (09:00)
[2025-02-13] MEDS ORDERED: GuaiFENesin 600 MG TabCR PO SCH (09:00)
[2025-02-13] MEDS ORDERED: BusPIRone HCl 10 MG Tab PO SCH (09:00)
[2025-02-13] MEDS ORDERED: Enoxaparin 40 MG/0.4 ML SYR SC SCH (09:00)
[2025-02-13] MEDS ORDERED: Atorvastatin 40 MG Tab PO SCH (09:00)
[2025-02-13] MEDS ORDERED: Lactobacil 2-S.Thermo-Bifido 1 1 Cap PO SCH (09:00)
[2025-02-13] MEDS ORDERED: Sertraline HCl 50 MG Tab PO SCH (09:00)
[2025-02-13] MEDS ORDERED: Thiamine HCl 100 MG Tab PO SCH (14:25)
[2025-02-13] MEDS ORDERED: Multivitamins 1 Tab PO SCH (14:25)
--- NOTE | 2025-02-13 17:59 | NUR ---
SHIFT SUMMARY PT A/OX4 AND COOPERAIVE OF CARE. PT ABLE TO EXPRES NEEDS AND CALLS APPROPIATE. PT INDEPENDENT IN BED AND SBA WHEN UP IN ROOM. PT REPORTED SLIGHT SOB WITH EXERTION, NO SOB WHEN AT REST. PT WITH A COUGH, SPUTUM SAMPLE COLLECTED THIS SHIFT. PT PROVIDED WITH FLUTTER VALVE AND EDUCATED ON USE, PT USING INDEPENDENTLY. SATS IN THE 90'S ON 3L NC. OTHER VSS THROUGHOUT SHIFT. NO REPORT OF CHEST PAIN/PRESSURE THROUGHOUT SHIFT. PT DAUGHTER TO PT ROOM TODAY AND UPDATED. ECHO TO BE DONE THIS SHIFT.
[2025-02-13] MEDS ORDERED: Lidocaine 2% Viscous Soln 15 ML UDC PO PRN (21:00)
[2025-02-13] MEDS ORDERED: Azithromycin 500 MG in NS 250 ML IV SCH (21:00)
[2025-02-13] MEDS ORDERED: CefTRIAXone Sodium 1,000 MG in NS 100 ML IV SCH (21:00)
--- NOTE | 2025-02-13 21:22 | NUR ---
TRANSFER REPORT GIVEN TO MEDICAL FLOOR NURSE. PATIENT ALERT, ORIENTED x4. TRANSFERRED SELF TO WHEELCHAIR TO MOVE TO ROOM 328. PATIENT ON 3L NC WITH SPO2 >90%. DENIES CHEST PAIN. SOME SOB WITH EXERTION. PATIENT TRANSFERRED WITH ALL BELONGINGS AND CHART.
--- NOTE | 2025-02-13 22:27 | NUR ---
2129 Patient arrived to room 328 via W/C with belongings. Pt denies pain or respiratory distress. Patient is alert and oriented. Oriented to call light and room. Lungs with fine exp wheeze eleuterio bases. O2 at 3 liters sats >95%. HR regular. Pt is not on tele. Resting with no distress.
[2025-02-14 02:40] VITALS: BP 111/67
--- NOTE | 2025-02-14 04:33 | NUR ---
Rn Shift summary: Patient has continued to rest without complaint. O2 remains at 3 liters which is her baseline. O2 sats greater than 95%. No changes in assessment noted.
[2025-02-14 05:23] LABS: BASOPHILS ABSOLUTE AUTO 0.03 K/mm3 (0.00-0.23); BASOPHILS PERCENT AUTO 0 % (0-2); EOSINOPHILS PERCENT AUTO 0 % (0-6); Hemoglobin 13.7 g/dL (11.5-16.0); IMMATURE GRAN ABSOLUTE AUTO 0.19 K/mm3 (0.00-0.10); IMMATURE GRAN PERCENT AUTO 1 % (0-1); LYMPHOCYTES ABSOLUTE AUTO 0.91 K/mm3 (0.84-5.20); LYMPHOCYTES PERCENT AUTO 6 % (21-46); MONOCYTES ABSOLUTE AUTO 0.93 K/mm3 (0.16-1.47); MONOCYTES PERCENT AUTO 6 % (4-13); Mean Corpuscular HGB 29.5 pg (26.0-34.0); Mean Corpuscular HGB Conc 32.6 g/dL (31.5-36.5); Mean Corpuscular Volume 90 fL (80-100); Mean Platelet Volume 11.1 fL (9.1-12.4); NEUTROPHILS ABSOLUTE AUTO 12.83 K/mm3 (1.96-9.15); NEUTROPHILS PERCENT AUTO 86 % (41-73); Platelet Count 256 K/mm3 (150-400); RDW Coefficient Variation 13.4 % (11.7-14.2); RDW Standard Deviation 44.7 fL (35.1-46.3); Red Blood Cell Count 4.65 M/mm3 (3.80-5.20); White Blood Cell Count 14.89 K/mm3 (4.00-11.30)
[2025-02-14 05:50] LABS: Magnesium, Blood 2.1 mg/dL (1.6-2.4)
[2025-02-14 05:51] LABS: Calcium, Blood 8.9 mg/dL (8.5-10.1); Creatinine, Blood 0.44 mg/dL (0.40-1.00); Phosphorus, Blood 3.5 mg/dL (2.5-4.9); Potassium, Blood 4.3 mmol/L (3.5-5.5)
[2025-02-14 07:53] VITALS: BP 111/76
[2025-02-14] MEDS ORDERED: Lidocaine 2% Viscous Soln 20 ML,Nystatin 100,000 Unit/ml Susp 20 ML,Mag Hydrox/Al Hydro... MT PRN (07:55)
[2025-02-14] MEDS ORDERED: Nystatin 100,000 Unit/ML Susp 5 ML UDC MT SCH (09:00)
[2025-02-14 15:22] VITALS: BP 149/86
--- NOTE | 2025-02-14 17:05 | NUR ---
SHIFT SUMMARY PT RESTING QUIETLY AT START OF SHIFT. BIOX 98% ON 3L VIA N/C. O2 DECREASED TO 2L WITH BIOX > 93% . DR MORROW AND RESIDENTS HERE TO SEE PT AND LATER DR BENAVIDES WELL. PT UP TO BTHRM INDEPENDENTLY. ABLE TO WORK WITH PT/OT TODAY. PER THERAPY, PT'S BIOX ONLY BRIEFLY DECREASED TO 89% AT ONE POINT, WITH EXERTION. PT ABLE TO TOLERATE AND RECOVER WELL. NYSTATIN SS ORDERED AND GIVEN PER EMAR. PT DECLINED TESSALON FOR COUGH TO PRESENT. PT REPORTING OCCASSIONAL PC EPISODES. DENIES FURTHER NEEDS. CALL LT IN REACH.
[2025-02-14 19:44] VITALS: BP 157/89
--- NOTE | 2025-02-15 04:07 | NUR ---
SHIFT SUMMARY A&0X4. AFFECT PLEASANT. SKIN FLUSHED,WARM,DRY. 02 ON AT 2L/M VIA NC. SOB WITH EXERTION, LUNG SOUNDS DIMINISHED, NO WHEEZING NOTED. HAS A MOIST COUGH, IV ANTIBIOTICS GIVEN PER ORDERS W/ NO S/SX OF ANY ADVERSE RXNS. RECEIVED IV SOLUMEDROL AD TOLERATED WELL. CONTINUOUS OXIMETRY CONT AND SATS HAVE BEEN LOW TO MD 90s ON ROUND WITH NO ALARMS NOTED AND HRs IN 80s TO 90s, VSS.
[2025-02-15 04:50] VITALS: BP 158/90
[2025-02-15 06:38] LABS: BASOPHILS ABSOLUTE AUTO 0.05 K/mm3 (0.00-0.23); BASOPHILS PERCENT AUTO 0 % (0-2); EOSINOPHILS PERCENT AUTO 0 % (0-6); Hemoglobin 14.2 g/dL (11.5-16.0); IMMATURE GRAN ABSOLUTE AUTO 0.53 K/mm3 (0.00-0.10); IMMATURE GRAN PERCENT AUTO 4 % (0-1); LYMPHOCYTES ABSOLUTE AUTO 0.85 K/mm3 (0.84-5.20); LYMPHOCYTES PERCENT AUTO 6 % (21-46); MONOCYTES ABSOLUTE AUTO 0.74 K/mm3 (0.16-1.47); MONOCYTES PERCENT AUTO 6 % (4-13); Mean Corpuscular HGB 30.3 pg (26.0-34.0); Mean Corpuscular Volume 92 fL (80-100); Mean Platelet Volume 10.9 fL (9.1-12.4); NEUTROPHILS PERCENT AUTO 84 % (41-73); Platelet Count 286 K/mm3 (150-400); RDW Coefficient Variation 13.5 % (11.7-14.2); RDW Standard Deviation 45.7 fL (35.1-46.3); Red Blood Cell Count 4.69 M/mm3 (3.80-5.20); White Blood Cell Count 13.27 K/mm3 (4.00-11.30)
[2025-02-15 07:12] LABS: Bun/Creatinine Ratio 42.9 (12.0-20.0); Calcium, Blood 8.7 mg/dL (8.5-10.1); Creatinine, Blood 0.49 mg/dL (0.40-1.00); Phosphorus, Blood 3.6 mg/dL (2.5-4.9); Potassium, Blood 4.7 mmol/L (3.5-5.5)
[2025-02-15 07:22] VITALS: BP 143/95
[2025-02-15] MEDS ORDERED: BENZ100A PO (12:43)
[2025-02-15] MEDS ORDERED: GUAI600T33 PO (12:44)
[2025-02-15] MEDS ORDERED: LACT PO (12:45)
[2025-02-15] MEDS ORDERED: CEFP200 PO (12:45)
[2025-02-15] MEDS ORDERED: PRED20 PO (12:47)
--- NOTE | 2025-02-15 15:48 | NUR ---
DISCHARGE PT AOX4, COOPERATIVE, ABLE TO MAKE NEEDS KNOWN. IV DC'D BY MANAGER EMBALMER FUNERAL DIRECTOR. HOME O2 EVAL RESULT WAS 2L O2 CONTINUOUS. PT ALREADY HAD [employer] CONCENTRATOR AND PORTABLE O2 AT HOME. INFORMED PTS SON TO BRING HIM PORTABLE O2 SO PT CAN DISCHARGE. PT UTILIZING PORTABLE O2 TO GO HOME ON. USED WHEELCHAIR TO TRANSFER DOWN TO PT ENTRANCE BY MANAGER EMBALMER FUNERAL DIRECTOR. THIS RN WENT OVER DC PAPERWORK WITH PT.
== END 2025-02-15 15:28 | disposition home or self-care (01) | DRG 193 ==
LOC: ER 18:11 → PCU 23:58 → MEDS 02-13 21:30
PROVIDERS: Student in an Organized Health Care Education/Training Program; ADMIT Student in an Organized Health Care Education/Training Program
DX: J18.9 Pneumonia, unspecified organism (principal); J96.21 Acute and chronic respiratory failure with hypoxia; J44.0 Chronic obstructive pulmonary disease with (acute) lower respiratory infection; J44.1 Chronic obstructive pulmonary disease with (acute) exacerbation; B37.0 Candidal stomatitis; G45.3 Amaurosis fugax; Z66 Do not resuscitate; I10 Essential (primary) hypertension; R79.1 Abnormal coagulation profile; E78.5 Hyperlipidemia, unspecified; G40.909 Epilepsy, unspecified, not intractable, without status epilepticus; I73.9 Peripheral vascular disease, unspecified; I65.23 Occlusion and stenosis of bilateral carotid arteries; F17.200 Nicotine dependence, unspecified, uncomplicated; F41.8 Other specified anxiety disorders; Z99.81 Dependence on supplemental oxygen; Z79.82 Long term (current) use of aspirin; Z79.51 Long term (current) use of inhaled steroids; Z79.52 Long term (current) use of systemic steroids
CPT/HCPCS: 0241U; 36415; 70450; 71046; 71260; 80048; 80053; 82803; 83605; 83735; 84100; 84145; 84484; 85025; 85379; 87070; 87077; 87186; 87205; 93005; 93010; 93306; 93880; 94640; 94644; 94664; 94761; 94762; 96365; 96367; 96375; 97110; 97162; 97530; 99285-25; A9270; J0456; J0696; J1650; J2919; J7050; Q9967

== ENCOUNTER 2025-09-14 16:32 | Inpatient (IN) | payer MEDICARE, OTHER ==
[~2025-09-14] VITALS: Ht 152.4 cm; Wt 40.5 kg
[~2025-09-14 16:32] MED LIST changes: +BENZ100A PO; +CEFP200 PO; +GUAI600T33 PO; +LACT PO
[2025-09-14] MEDS ORDERED: Mag Sulfate 1 GM/D5% 100ML 100 ML IV ONE (17:00)
[2025-09-14] MEDS ORDERED: Albuterol 2.5 MG/3 ML VIAL INH SCH (17:00)
[2025-09-14 17:37] LABS: Hematocrit 44.1 % (33.0-51.0); Hemoglobin 14.7 g/dL (11.5-16.0); Mean Corpuscular HGB Conc 33.3 g/dL (31.5-36.5); Mean Corpuscular Volume 93 fL (80-100); NRBC ABSOLUTE 0.00 K/mm3 (0.00-0.02); NRBC Auto 0.0 /100 WBC (0.0-0.2); Platelet Count 213 K/mm3 (150-400); RDW Coefficient Variation 13.0 % (11.7-14.2); RDW Standard Deviation 44.0 fL (35.1-46.3); pH Blood Venous 7.37 (7.34-7.37)
[2025-09-14 17:54] LABS: Alanine Aminotransfer (ALT/SGP 26.0 U/L (12-78); Albumin, Blood 3.2 g/dL (3.4-5.0); Albumin/Globulin Ratio 0.8 (0.8-1.8); Anion Gap 8.0 mmol/L (3-11); Aspartate Aminotrans (AST/SGOT 32.0 U/L (12-37); Bilirubin, Total 0.6 mg/dL (0.1-1.0); Blood Urea Nitrogen 12.0 mg/dL (8-24); CO2, Blood 31.0 mmol/L (21-32); Calcium, Blood 9.5 mg/dL (8.5-10.1); Chloride, Blood 102.0 mmol/L (98-108); Creatinine, Blood 0.42 mg/dL (0.40-1.00); Globulin, Blood 4.2 g/dL (2.2-4.0); Glucose, Blood 160.0 mg/dL (70-99); Potassium, Blood 3.7 mmol/L (3.5-5.5); Sodium, Blood 137.0 mmol/L (136-145); Total Protein, Blood 7.4 g/dL (6.4-8.2)
[2025-09-14] MEDS ORDERED: NS 1,000 ML IV SCH ×3 (17:55→21:00)
[2025-09-14] MEDS ORDERED: CefTRIAXone Sodium 1,000 MG in NS 100 ML IV ONE (18:00)
[2025-09-14 18:07] LABS: Influenza A, PCR NEGATIVE (NEGATIVE); Influenza B, PCR NEGATIVE (NEGATIVE); Resp Syncytial Virus, PCR NEGATIVE (NEGATIVE); SARS-Cov-2 (COVID-19) PCR, MMC NEGATIVE (NEGATIVE)
[2025-09-14] MEDS ORDERED: FLU VACC TS2025(65UP)/MF59C/PF 45 MCG/0.5 ML SYRINGE IM SCH (18:45)
[2025-09-14] MEDS ORDERED: Ipratropium/Albuterol SulF 2.5-0.5MG/3 ML Amp INH SCH (18:50)
[2025-09-14] MEDS ORDERED: Ondansetron HCl 2 MG / ML 2ML Vial IV PRN (18:50)
[2025-09-14 19:01] LABS: BAND PERCENT MAN 3 % (0-8); BASOPHILS ABSOLUTE MAN 0.18 K/mm3 (0.00-0.23); BASOPHILS PERCENT MAN 1 % (0-2); EOSINOPHILS ABSOLUTE MAN 0.00 K/mm3 (0.00-0.68); EOSINOPHILS PERCENT MAN 0 % (0-6); LYMPHOCYTES ABSOLUTE MAN 0.75 K/mm3 (0.84-5.20); LYMPHOCYTES PERCENT MAN 4 % (21-46); MONOCYTES ABSOLUTE MAN 0.56 K/mm3 (0.16-1.47); MONOCYTES PERCENT MAN 3 % (4-13); NEUTROPHILS ABSOLUTE MAN 17.35 K/mm3 (1.96-9.15); SEG NEUTROPHILS PERCENT MAN 89 % (41-73)
[2025-09-14 20:10] LABS: pH Blood Venous 7.30 (7.34-7.37)
[2025-09-14] MEDS ORDERED: Lactobacil 2-S.Thermo-Bifido 1 1 Cap PO SCH (21:00)
[2025-09-14 23:08] VITALS: BP 138/84
[2025-09-15] VITALS (7 sets, daily range): BP systolic 113–161; BP diastolic 77–97
[2025-09-15 02:15] LABS: BASOPHILS ABSOLUTE AUTO 0.02 K/mm3 (0.00-0.23); BASOPHILS PERCENT AUTO 0 % (0-2); EOSINOPHILS ABSOLUTE AUTO 0.00 K/mm3 (0.00-0.68); EOSINOPHILS PERCENT AUTO 0 % (0-6); Hematocrit 38.4 % (33.0-51.0); Hemoglobin 12.7 g/dL (11.5-16.0); IMMATURE GRAN ABSOLUTE AUTO 0.07 K/mm3 (0.00-0.10); IMMATURE GRAN PERCENT AUTO 0 % (0-1); LYMPHOCYTES ABSOLUTE AUTO 0.37 K/mm3 (0.84-5.20); LYMPHOCYTES PERCENT AUTO 2 % (21-46); MONOCYTES ABSOLUTE AUTO 0.31 K/mm3 (0.16-1.47); MONOCYTES PERCENT AUTO 2 % (4-13); Mean Corpuscular HGB Conc 33.1 g/dL (31.5-36.5); Mean Corpuscular Volume 93 fL (80-100); NEUTROPHILS ABSOLUTE AUTO 14.86 K/mm3 (1.96-9.15); NEUTROPHILS PERCENT AUTO 95 % (41-73); NRBC ABSOLUTE 0.00 K/mm3 (0.00-0.02); NRBC Auto 0.0 /100 WBC (0.0-0.2); Platelet Count 190 K/mm3 (150-400); RDW Coefficient Variation 13.1 % (11.7-14.2); RDW Standard Deviation 44.4 fL (35.1-46.3)
[2025-09-15 02:26] LABS: pH Blood Venous 7.42 (7.34-7.37)
[2025-09-15 02:40] LABS: Alanine Aminotransfer (ALT/SGP 27.0 U/L (12-78); Albumin, Blood 2.7 g/dL (3.4-5.0); Albumin/Globulin Ratio 0.8 (0.8-1.8); Anion Gap 6.0 mmol/L (3-11); Aspartate Aminotrans (AST/SGOT 27.0 U/L (12-37); Bilirubin, Total 0.3 mg/dL (0.1-1.0); Blood Urea Nitrogen 11.0 mg/dL (8-24); CO2, Blood 28.0 mmol/L (21-32); Calcium, Blood 8.9 mg/dL (8.5-10.1); Chloride, Blood 110.0 mmol/L (98-108); Creatinine, Blood 0.38 mg/dL (0.40-1.00); Globulin, Blood 3.6 g/dL (2.2-4.0); Glucose, Blood 153.0 mg/dL (70-99); Magnesium, Blood 2.1 mg/dL (1.6-2.4); Potassium, Blood 3.6 mmol/L (3.5-5.5); Sodium, Blood 140.0 mmol/L (136-145); Total Protein, Blood 6.3 g/dL (6.4-8.2)
--- NOTE | 2025-09-15 06:40 | NUR ---
PT STABLE SINCE ADMIT. PT REMAINS AOX4, ON BEDREST D/T SEVERE DYSPNEA AND DEOXYGENTATION WITH EXERTION. PT REMAINS ON 6L O2 BY NC. VITAL SIGNS WNL WITH O2.
[2025-09-15] MEDS ORDERED: Enoxaparin 30 MG/0.3 ML SYR SC SCH (09:00)
--- NOTE | 2025-09-15 11:07 | NUR ---
MORNING ASSESSMENT THE PT IS A&OX4, 1P ASSIST FOR TRANSFER, AND SHE IS ABLE TO MAKE HER NEEDS KNOWN. SHE DOES HAVE GLASSES IN HER DISPOSITION THAT SHE NEEDS TO HELP HER SEE. SHE HAS COMPLAINED OF A HEADACHE AND BACK PAIN TODAY. COFFEE WAS REPORTED TO HELP WITH THE HEADACHE. TYLENOL GIVEN PER EMAR. ON TELE SHE HAS BEEN SR 70'S AND BP STABLE. SHE HAS BEEN ON 6L NC (BASELINE 2L NC) AND SP02 >88%. THE PT HAS BEEN SOB AND HAS BEEN COUGHING UP MODERATE AMOUNT OF PARKER THICK SPUTUM. DR. PENN ROUNDED THIS MORNING AND HIS RN DISCUSSED RESTARTING HOME MEDICATIONS. DR PENN STATED SHE WOULD TAKE A LOOK. SEE NOTES FOR UPDATES.
[2025-09-15] MEDS ORDERED: Tiotropium Bromide 2.5 MCG/ACT MIST INHAL (10 ACT/4 GM) INH SCH (13:20)
[2025-09-15] MEDS ORDERED: Formoterol/Mometasone MDI 5/100 mcg 13 GM INH SCH (13:20)
--- NOTE | 2025-09-15 17:12 | NUR ---
END OF SHIFT UPDATES THE PT REMAINS A&OX4, CALLS APPROPRAITELY, AND MAKES NEEDS KNOWN. THE PT HAS BEEN ON TELE SR 70'S. BP STABLE. SHE STARTED THE SHIFT ON 6LNC AND HAS BEEN TITRAITED TO 4LNC. THE PT HAS DENIED ANY INCREASED SOB. THE PT CONINUES TO SPIT OUT MOD THICK PARKER SPUTUM. HER RESP DEMAND WITH ACTIVITY HAS IMPROVED AND HAS BEEN ABLE TO GET TO THE BSC. LORAINE HAS BEEN D/C'D. NO ACUTE EVENTS THIS SHIFT. SEE NOTES FOR ANY UPDATES
[2025-09-15] MEDS ORDERED: CefTRIAXone Sodium 1,000 MG in NS 100 ML IV SCH (18:00)
[2025-09-15] MEDS ORDERED: NS 250 ML IV PRN (19:55)
[2025-09-16 04:06] LABS: Hematocrit 37.4 % (33.0-51.0); Hemoglobin 12.5 g/dL (11.5-16.0); Mean Corpuscular HGB Conc 33.4 g/dL (31.5-36.5); Mean Corpuscular Volume 94 fL (80-100); NRBC ABSOLUTE 0.00 K/mm3 (0.00-0.02); NRBC Auto 0.0 /100 WBC (0.0-0.2); Platelet Count 208 K/mm3 (150-400); RDW Coefficient Variation 13.4 % (11.7-14.2); RDW Standard Deviation 46.9 fL (35.1-46.3)
[2025-09-16 04:16] VITALS: BP 138/82
[2025-09-16 04:26] LABS: Albumin, Blood 2.6 g/dL (3.4-5.0); Anion Gap 7 mmol/L (3-11); Blood Urea Nitrogen 17 mg/dL (8-24); CO2, Blood 28 mmol/L (21-32); Calcium, Blood 8.9 mg/dL (8.5-10.1); Chloride, Blood 110 mmol/L (98-108); Creatinine, Blood 0.50 mg/dL (0.40-1.00); Glucose, Blood 140 mg/dL (70-99); Phosphorus, Blood 2.4 mg/dL (2.5-4.9); Potassium, Blood 3.6 mmol/L (3.5-5.5); Sodium, Blood 141 mmol/L (136-145)
--- NOTE | 2025-09-16 06:28 | NUR ---
SHIFT SUMMARY: PT IS A&OX4, PLEASANT AND COOPERATIVE WITH CARE. BP ELEVATED, ON 6L HFNC, O2 SATS 93%, PT DID NOT TOLERATE TITRATING OXYGEN DOWN. SR 90'S. PT DOES HAVE A MOIST PRODUCTIVE COUGH. PT SLEPT WELL T/O THE NIGHT. DENIES PAIN. PT TOLERATING A REGULAR DIET. X1 ASSIST TO BSC. PT VOIDING ADEQUATE AMOUNTS OF YELLOW URINE. NO BM THIS SHIFT. BOWEL SOUNDS ACTIVE. BED IN LOWEST POSITION, CALL LIGHT WITHIN REACH. CALLS APPROPRIATELY AND IS ABLE TO ADVOCATE NEEDS EFFECTIVELY.
[2025-09-16 08:01] VITALS: BP 141/83
[2025-09-16 12:31] VITALS: BP 143/81
[2025-09-16 16:50] VITALS: BP 157/93
[2025-09-16] MEDS ORDERED: Potassium Phos/Sodium Phos 250 MG PACK PO SCH (17:00)
--- NOTE | 2025-09-16 17:09 | NUR ---
PT IS A&Ox4 AND ABLE TO MAKE NEEDS KNOWN. SHE IS ON 2LNC (BASELINE) W/O2 SATS >90%. SHE IS A SBA FOR AMBULATION. NO NEEDS OR CONCERNS NOTED @ THIS TIME. BED IN LOW POSITION, CALL LIGHT AND PERSONAL BELONGINGS IN REACH.
--- NOTE | 2025-09-16 18:26 | NUR ---
Pt. is awake and was eating dinner when she welcomes my visit. Pt. is pleasant. Faciolitated a short life review. While Pt. dewclined interest in spiritual care, the Pt. welcomed my visit. Pt. verbalized gratitude for the visit and welcomed this mold carpenter to return.
[2025-09-16 20:20] VITALS: BP 161/90
[2025-09-16] MEDS ORDERED: HydrALAZINE HCl 20 MG / ML 1ML Vial IV PRN (20:45)
[2025-09-17 00:29] VITALS: BP 158/98
[2025-09-17 04:02] LABS: BASOPHILS ABSOLUTE AUTO 0.02 K/mm3 (0.00-0.23); BASOPHILS PERCENT AUTO 0 % (0-2); EOSINOPHILS ABSOLUTE AUTO 0.00 K/mm3 (0.00-0.68); EOSINOPHILS PERCENT AUTO 0 % (0-6); Hematocrit 38.1 % (33.0-51.0); Hemoglobin 12.2 g/dL (11.5-16.0); IMMATURE GRAN ABSOLUTE AUTO 0.12 K/mm3 (0.00-0.10); IMMATURE GRAN PERCENT AUTO 1 % (0-1); LYMPHOCYTES ABSOLUTE AUTO 0.46 K/mm3 (0.84-5.20); LYMPHOCYTES PERCENT AUTO 4 % (21-46); MONOCYTES ABSOLUTE AUTO 0.48 K/mm3 (0.16-1.47); MONOCYTES PERCENT AUTO 4 % (4-13); Mean Corpuscular HGB Conc 32.0 g/dL (31.5-36.5); Mean Corpuscular Volume 96 fL (80-100); NEUTROPHILS ABSOLUTE AUTO 10.42 K/mm3 (1.96-9.15); NEUTROPHILS PERCENT AUTO 91 % (41-73); NRBC ABSOLUTE 0.00 K/mm3 (0.00-0.02); NRBC Auto 0.0 /100 WBC (0.0-0.2); Platelet Count 230 K/mm3 (150-400); RDW Coefficient Variation 13.4 % (11.7-14.2); RDW Standard Deviation 47.3 fL (35.1-46.3)
[2025-09-17 04:23] LABS: Albumin, Blood 2.5 g/dL (3.4-5.0); Anion Gap 8 mmol/L (3-11); Blood Urea Nitrogen 17 mg/dL (8-24); CO2, Blood 31 mmol/L (21-32); Calcium, Blood 8.8 mg/dL (8.5-10.1); Chloride, Blood 108 mmol/L (98-108); Creatinine, Blood 0.47 mg/dL (0.40-1.00); Glucose, Blood 140 mg/dL (70-99); Phosphorus, Blood 3.1 mg/dL (2.5-4.9); Potassium, Blood 4.5 mmol/L (3.5-5.5); Sodium, Blood 142 mmol/L (136-145)
[2025-09-17 04:39] VITALS: BP 153/94
--- NOTE | 2025-09-17 07:37 | NUR ---
SHIFT SUMMARY: PT IS A&OX4, PLEASANT AND COOPERATIVE WITH CARE. BP ELEVATED, ON 2L HFNC, THIS IS PT'S BASELINE HOME USE, O2 SATS 93%. SR 80'S. PT DOES HAVE A MOIST PRODUCTIVE COUGH. DENIES PAIN. PT TOLERATING A REGULAR DIET. X1 ASSIST TO BR. PT VOIDING ADEQUATE AMOUNTS OF YELLOW URINE. NO BM THIS SHIFT, BOWEL CARE ADMINISTERED. BED IN LOWEST POSITION, CALL LIGHT WITHIN REACH. CALLS APPROPRIATELY AND IS ABLE TO ADVOCATE NEEDS EFFECTIVELY.
[2025-09-17 08:35] VITALS: BP 128/82
[2025-09-17 11:30] VITALS: BP 174/96
[2025-09-17] MEDS ORDERED: Ipratropium/Albuterol SulF 2.5-0.5MG/3 ML Amp INH SCH (12:00)
[2025-09-17 15:59] VITALS: BP 163/94
--- NOTE | 2025-09-17 17:53 | NUR ---
END OF SHIFT SUMMARY PT IS A&0 X4, ABLE TO MAKE NEEDS KNOWN AND IS AFEBRILE. CONTINUOUS CARDAIC MONITORING IS IN PLACE SHOWING SR WITH A HR IN THE 80'S. SBP WAS 140'S-170'S. PT CAN BECOME SOB WITH MOVEMENT. PT IS ON 2L NC WITH SPO2 >92%, COUGH IS PRODUCTIVE. PT IS ON REGULAR DIET, CAN TOLERATE PO INTAKE WELL. PT IS ONE PERSON ASSIST TO THE BATHROOM. RFA PIV IS IN PLACE. BED IS IN LOWEST POSITION, CALL LIGHT IN REACH, WILL REPORT TO ONCOMING SHIFT.
[2025-09-17 19:33] VITALS: BP 155/83
[2025-09-18 00:11] VITALS: BP 159/82
[2025-09-18 03:53] LABS: BASOPHILS ABSOLUTE AUTO 0.05 K/mm3 (0.00-0.23); BASOPHILS PERCENT AUTO 1 % (0-2); EOSINOPHILS ABSOLUTE AUTO 0.01 K/mm3 (0.00-0.68); EOSINOPHILS PERCENT AUTO 0 % (0-6); Hematocrit 41.8 % (33.0-51.0); Hemoglobin 13.6 g/dL (11.5-16.0); IMMATURE GRAN ABSOLUTE AUTO 0.39 K/mm3 (0.00-0.10); IMMATURE GRAN PERCENT AUTO 4 % (0-1); LYMPHOCYTES ABSOLUTE AUTO 0.69 K/mm3 (0.84-5.20); LYMPHOCYTES PERCENT AUTO 7 % (21-46); MONOCYTES ABSOLUTE AUTO 0.46 K/mm3 (0.16-1.47); MONOCYTES PERCENT AUTO 4 % (4-13); Mean Corpuscular HGB Conc 32.5 g/dL (31.5-36.5); Mean Corpuscular Volume 95 fL (80-100); NEUTROPHILS ABSOLUTE AUTO 9.04 K/mm3 (1.96-9.15); NEUTROPHILS PERCENT AUTO 85 % (41-73); NRBC ABSOLUTE 0.00 K/mm3 (0.00-0.02); NRBC Auto 0.0 /100 WBC (0.0-0.2); Platelet Count 260 K/mm3 (150-400); RDW Coefficient Variation 13.2 % (11.7-14.2); RDW Standard Deviation 46.9 fL (35.1-46.3)
[2025-09-18 04:33] VITALS: BP 159/98
[2025-09-18 04:57] LABS: Albumin, Blood 2.7 g/dL (3.4-5.0); Anion Gap 7 mmol/L (3-11); Blood Urea Nitrogen 18 mg/dL (8-24); CO2, Blood 32 mmol/L (21-32); Calcium, Blood 8.7 mg/dL (8.5-10.1); Chloride, Blood 106 mmol/L (98-108); Creatinine, Blood 0.54 mg/dL (0.40-1.00); Glucose, Blood 113 mg/dL (70-99); Phosphorus, Blood 3.3 mg/dL (2.5-4.9); Potassium, Blood 4.6 mmol/L (3.5-5.5); Sodium, Blood 140 mmol/L (136-145)
--- NOTE | 2025-09-18 06:17 | NUR ---
SHIFT SUMMARY PATIENT A/OX4. NO ACUTE CHANGES OVERNIGHT. PLEASANT AND COOPERATIVE. SLEPT MOST OF NIGHT. VSS. AMBULATED TO RR WITH O2. INCREASED WORK OF BREATHING WITH MINIMAL EXERTION. PATIENT NEEDED SEVERAL MINUTES TO RECOVER WITH PURSED LIP BREATHING. NO COMPLAINTS OF PAIN. PATIENT ANTICIPATES TO D/C TODAY. PLAN OF CARE ONGOING.
[2025-09-18 07:43] VITALS: BP 147/97
--- NOTE | 2025-09-18 10:53 | NUR ---
Pt. is awake and sitting in a chair when she welcomes my visit. Pt. is pleasant. Facilitate an update. Pt. verbalizes an expectation that she woudl be discharge to home today. Listen with interest and empathy as I normalize the Pt. experience. Pt. verbalized that she might need a taxi to get home to [place]. Pt. verbalized gratitude fo rthe spiritual care visit. Notified attending nurse of the transportation need.
[2025-09-18 12:00] VITALS: BP 137/89
[2025-09-18] MEDS ORDERED: GUAI600T33 PO (13:17)
[2025-09-18] MEDS ORDERED: Nicoderm Cq1 EAC1 TOP (13:18)
[2025-09-18] MEDS ORDERED: PRED20 PO (13:19)
[2025-09-18] MEDS ORDERED: CEFP200 PO (13:32)
--- NOTE | 2025-09-18 14:03 | NUR ---
DISCHARGE NOTE PT IS A/0 X4 AND ABLE TO MAKE NEEDS KNOWN. PT IS ON 2L NC WITH SPO2 >92%, THIS IS THE PT'S BASELINE. PT IS SBA TO THE BATHROOM WITH MINIMAL ASSISTANCE. PT REQUESTED TO BE PICKED UP FROM THE HOSPITAL VIA [employer] [facility] AND WAS AWARE AND WILLING TO PAY FOR THE TRANSPORT. REVIEWED DISCHARGE INSTRUCTIONS WITH PT AND SENT DISCAHRGE INSTRUCTIONS WITH PT.
== END 2025-09-18 14:00 | disposition home or self-care (01) | DRG 871 ==
LOC: ER 16:32 → ERHOLD 18:41 → PCU 18:41
PROVIDERS: Family Medicine; Internal Medicine; Student in an Organized Health Care Education/Training Program; ADMIT Student in an Organized Health Care Education/Training Program
DX: A41.9 Sepsis, unspecified organism (principal); I21.A1 Myocardial infarction type 2; J18.9 Pneumonia, unspecified organism; J96.21 Acute and chronic respiratory failure with hypoxia; J96.22 Acute and chronic respiratory failure with hypercapnia; J44.1 Chronic obstructive pulmonary disease with (acute) exacerbation; J44.0 Chronic obstructive pulmonary disease with (acute) lower respiratory infection; E87.20 Acidosis, unspecified; Z66 Do not resuscitate; R65.20 Severe sepsis without septic shock; G40.909 Epilepsy, unspecified, not intractable, without status epilepticus; F41.9 Anxiety disorder, unspecified; E78.5 Hyperlipidemia, unspecified; F17.210 Nicotine dependence, cigarettes, uncomplicated; I73.9 Peripheral vascular disease, unspecified; I10 Essential (primary) hypertension; F32.A Depression, unspecified; Z79.82 Long term (current) use of aspirin; Z99.81 Dependence on supplemental oxygen; Z79.51 Long term (current) use of inhaled steroids; Z79.52 Long term (current) use of systemic steroids
CPT/HCPCS: 36415; 71045; 80053; 80069; 82803; 83605; 83690; 83735; 83880; 84145; 84484; 85025; 85027; 87040; 87637; 93005; 93010; 93306; 94640; 94664; 94761; 94762; 96365; 96367; 99285-25; A9270; J0456; J0696; J1650; J2919; J3475; J7030; J7050; J7512